=== PATIENT | male | born 1965 | race Caucasian/White ===

== ENCOUNTER 2024-02-25 13:43 | Inpatient (IN) | payer BC, SELFPAY ==
[2024-02-25] VITALS (13 sets, daily range): BP systolic 86–124; BP diastolic 53–85; PULSE 60–74; RESP 14–18; TEMP 36.1–36.7; O2SAT 96–100; BMI 29.4; BMI 29.2
--- NOTE | 2024-02-25 14:00 | EDS_ITS ---
HPI History of Present Illness Chief Complaint: Dizziness Informant: patient Onset/Context/Timing Onset: Weeks (1) Context: Gradual Onset Timing: Intermittent Quality: Fuzzy, off balance, foggy Location: Head Worsened by: Nothing Relieved by: Nothing Narrative Narrative: Patient presents with dizziness that has been intermittent over the last week. Patient states he feels fuzzy, foggy, and off balance. Patient states nothing makes it better nothing makes it worse. Patient denies any tinnitus or hearing changes. Patient does admit to some blurry vision and some rhinorrhea. Patient denies any recent fevers or chills. Patient denies any headaches or neck pain. Patient denies any chest pain or shortness of breath. [facility] Medical History Anxiety Hypertension Home Medications ?Medication ?Instructions ?Recorded ?Last Taken ?Type artificial tears(hypromellose) 0.5 1 drp EACH EYE DAILY PRN dry eyes 02/25/24 Unknown History % eye drops atenolol 50 mg tablet 50 mg PO DAILY BLOOD PRESSURE 02/25/24 02/25/24 History citalopram 20 mg tablet 20 mg PO DAILY PRN anxiety 02/25/24 02/25/24 History lisinopril 30 mg tablet 30 mg PO DAILY BLOOD PRESSURE 02/25/24 02/25/24 History Allergy/AdvReac Type Severity Reaction Status Date / Time No Known Allergies Allergy Verified 02/25/24 13:45 Family History Other Cancer Heart disease Surgical History Hx of foot surgery Social History Smoking Status: Never smoker alcohol intake: current alcohol intake frequency: a few times a month substance use type: marijuana ROS ROS ED Constitutional Constitutional ED: Denies chills or fever(s) Eyes Eyes: Reports blurry vision; Denies change in vision ENT ENT ED: Reports rhinorrhea; Denies sore throat Cardiovascular Cardiovascular: Denies chest pain or palpitations Respiratory/Chest Respiratory/Chest: Denies cough or dyspnea Gastrointestinal Gastrointestinal: Denies nausea or vomiting Genitourinary Genitourinary ED: Denies dysuria or hematuria Musculoskeletal Musculoskeletal: Reports back pain; Denies neck pain Integumentary Denies abscess or rash Neurologic Neurologic: Denies headache(s) or weakness Allergic/Immunologic Allergic/Immunologic ED: Denies mouth swelling or urticaria EXAM Physical Exam Const Vital Signs: 02/25/24 13:44 02/25/24 14:55 02/25/24 15:43 Temperature 96.9 F L Temperature Source Temporal Pulse Rate 71 60 Pulse Rate [Lying] 62 Pulse Rate [Sitting (for 1 minute prior to obtaining)] 72 Pulse Rate [Standing (for 1 minute prior to obtaining)] 74 Respiratory Rate 18 16 Blood Pressure 113/62 119/53 L Blood Pressure [Lying] 99/60 Blood Pressure [Sitting (for 1 minute prior to obtaining)] 86/74 L Blood Pressure [Standing (for 1 minute prior to obtaining)] 111/68 Blood Pressure Mean 79 75 Blood Pressure Mean [Lying] 73 Blood Pressure Mean [Sitting (for 1 minute prior to obtaining)] 78 Blood Pressure Mean [Standing (for 1 minute prior to obtaining)] 82 Pulse Ox 99 96 Oxygen Delivery Method Room Air Positive well nourished and well developed General Appearance ED: well developed HEENT Reports moist mucous membranes Eyes PERRL and EOMs intact bilaterally Eyes Narrative: There was some nystagmus noted with right lateral gaze. There is mild nystagmus with left lateral gaze. This does not reproduce the patient's symptoms. Neck supple and no JVD Resp normal respiratory effort and clear to auscultation bilaterally Cardio regular rate and regular rhythm GI non-tender and non-distended Palpation: soft Extremity normal to inspection General Extremety ED: Negative for edema or tenderness General Extremity: Negative for edema Neuro oriented x3, CN's II-XII intact bilaterally and no sensory deficits noted Sensorium / Orientation: alert Motor Exam: strength 5/5 throughout Psych mental status grossly normal MDM MDM MDM Narrative Medical decision making narrative: Differential diagnosis includes stroke, vertigo, labyrinthitis, electrolyte abnormality, dehydration, anemia, diabetes, and anxiety. CBC will be obtained to assess for leukocytosis and anemia. Basic metabolic profile will be obtained to assess for electrolyte abnormality, hyperglycemia, hypoglycemia, and renal function. PT with INR and PTT will be obtained to assess for coagulopathy. High-sensitivity troponin will be obtained to assess for cardiac ischemia. EKG will be obtained to assess for cardiac dysrhythmia and cardiac ischemia. CT scan of the brain will be obtained to assess for stroke and intracranial bleeding. Lab Data Attestation: I reviewed the patient's lab results. Lab results narrative: CBC was reviewed. There is a mild anemia with a hemoglobin of 12.3 and hematocrit 33.5. The remainder is within normal limits. PT was INR and PTT were reviewed. Pro time was 14.7 and INR is 1.2. PTT was normal at 32. Basic metabolic profile was reviewed. Sodium was low at 113 and chloride was low at 75. Potassium was slightly low at 3.4. Remainder is within normal limits. High-sensitivity troponin was reviewed and was normal at 6. Labs: Laboratory Results - last 24 hr 02/25/24 14:20 WBC 8.5 RBC 3.99 L Hgb 12.3 L Hct 33.5 L MCV 84.0 MCH 30.8 MCHC 36.7 H RDW Std Deviation 42.0 RDW Coeff of Inocente 13.5 Plt Count 175 MPV 8.6 Immature Gran % (Auto) 0.600 Neut % (Auto) 64.5 Lymph % (Auto) 20.4 [place] % (Auto) 13.3 H Eos % (Auto) 0.6 Baso % (Auto) 0.6 Absolute Neuts (auto) 5.5 Absolute Lymphs (auto) 1.73 Nucleated RBC % 0 PT 14.7 INR 1.2 APTT 32.0 Sodium 113 L* Potassium 3.4 L Chloride 75 L Carbon Dioxide 26.0 Anion Gap 12 BUN 16 Creatinine 1.23 Estim Creat Clear Calc 75.36 Est GFR (MDRD) Af Amer 77 Est GFR (MDRD) Non-Af 64 BUN/Creatinine Ratio 13.0 Glucose 98 Serum Osmolality 248 L Uric Acid 4.0 Calcium 8.7 Troponin I High Sens 6 Radiography Chest X-Ray - ED: 1 View, Read by ED Physician, Read by Radiologist and No Acute Disease Diagnostic Testing: Clinical Impression(s) from Imaging Studies Brain CT 02/25/24 14:11 IMPRESSION: Chronic involutional changes of the brain. Electronically Signed: González Finnegan MD at 15:23 EDT , Chest X-Ray 02/25/24 14:40 IMPRESSION: No acute cardiopulmonary disease. Electronically Signed: González Finnegan MD at 15:50 EDT , CT scan of the brain was obtained. There is no acute intracranial abnormality. This was interpreted by the radiologist and was also independently reviewed by myself. Portable 1 view chest x-ray was obtained. On my independent interpretation, lung emery are clear. There is normal cardiac silhouette. Bony thorax is normal. There is no acute process noted. Radiologist also interpreted the x- ray and agrees. EKG Initial EKG: Attestation: I personally reviewed and interpreted this EKG as follows: Interpretation: Sinus Rhythm (63) and No Acute Injury Pattern Comments: EKG was obtained. On my independent interpretation, it showed a normal sinus rhythm with a rate of 63. [place] interval, QRS interval, and QTc intervals were all normal. [place] was normal. There are no acute ST or T wave changes. Prior EKG tracings: not available for review Prior: No Prior Management Discussion w/another healthcare provider: Hospitalist Treatment and Re-Evaluation :: Orthostatic vital signs were obtained and were negative. Patient was advised of his findings. Patient was started on saline at 250 cc/h. Patient was advised of the need for hospitalization. Patient is agreeable with this. Case was discussed with the hospitalist. He will admit the patient to his service. He recommended starting the patient on 3% saline. This was ordered. Patient understood and was agreeable with the plan. All questions were answered. Critical Care Time Critical Care Time: Yes Critical care time (excluding procedures): 30-74 minutes (36 minutes), Including time spent:, Discussing w/Patient &/or Family/Company Manager, Discussing w/Consultants, Arranging Admission or Transfer and Performing Direct Patient Care at Bedside Discharge Plan Dx/Rx/DC Orders Clinical Impression: Hyponatremia, Dizziness, Hypertension Disposition Disposition: [facility] Discharge Date/Time: 02/25/24 16:28
--- NOTE | 2024-02-25 14:11 | CT_ITS ---
STUDY: CT BRAIN WITHOUT CONTRAST REASON FOR EXAM: Male, 58 years old. Dizziness RADIATION DOSAGE (If Supplied By Facility): CTDIvol = ( 44.99 ) mGy, DLP = ( 812.98 ) mGycm TECHNIQUE: Transaxial CT imaging of the brain was performed without administration of intravenous contrast material. Individualized dose optimization techniques were used for this CT. COMPARISON: No relevant priors. FINDINGS: Normal soft tissue structures. Normal calvarium. There is mild cerebral atrophy with widening of the extra-axial spaces and ventricular dilatation. Normal white matter tracts of the cerebral hemispheres. There are left temporal calcifications. Normal basal ganglia and thalami. Normal brainstem. Normal cerebellum. There is no intracranial hemorrhage. There are no findings of an acute ischemic infarction. Normal visualized paranasal sinuses. CT/Brain/Head without Contrast IMPRESSION: Chronic involutional changes of the brain. Electronically Signed: Gonzálze Finnegan MD at 15:23 EDT ,
--- NOTE | 2024-02-25 14:11 | EKG12_ITS ---
Test Reason : Blood Pressure : / mmHG Vent. Rate : 063 BPM Atrial Rate : 063 BPM P-R Int : 194 ms QRS Dur : 112 ms QT Int : 446 ms P-R-T Axes : 069 038 057 degrees QTc Int : 456 ms Normal sinus rhythm Incomplete left bundle branch block Borderline ECG Confirmed by Dillon Villarreal ([id number]), editor in chief PATRICIA ALVARADO ([id number]) on 02/28/2024 8:13:55 AM Referred By: Confirmed By:Dillon Villarreal
[2024-02-25 14:31] LABS: Absolute Lymphocyte Count 1.73 X10^3/uL (0.83-4.51); Absolute Neutrophil Count 5.5 X10^3/uL (2.0-7.7); Basophil# 0.05 X10^3/uL; Basophil% 0.6 % (0-1); Eosinophil# 0.05 X10^3/uL; Eosinophils% 0.6 % (0-5); Hematocrit 33.5 % (40-54); Hemoglobin 12.3 g/dL (13.0-16.5); Lymphocyte # 1.73 X10^3/ul (0.83-4.51); Lymphocyte % 20.4 % (19-41); Mean Corp Hgb Conc 36.7 g/dL (32-36); Mean Corpuscular Hgb 30.8 pg (27.0-32.0); Mean Platelet Vol. 8.6 fl (6.2-12.0); Monocyte# 1.13 X10^3/uL; Monocyte% 13.3 % (0-10); NRBC Flagged by Analyzer 0 % (0-5); Neutrophil # 5.49 X10^3/uL (2.7-7.7); Neutrophil % 64.5 % (47-70); Platelet Count 175 K/mm3 (150-450); RBC Distribution Width CV 13.5 % (11.6-14.6); Red Blood Count 3.99 M/mm3 (4.6-6.2); White Blood Count 8.5 K/mm3 (4.4-11.0)
--- NOTE | 2024-02-25 14:40 | RAD_ITS ---
STUDY: X-RAY CHEST REASON FOR EXAM: Male, 58 years old. Dizziness TECHNIQUE: Single AP portable view of the chest. COMPARISON: None. FINDINGS: The lungs are clear and expanded. There is no demonstrated pleural abnormality. Normal size heart. Normal mediastinum and [place]. Normal visualized pulmonary arteries. There is atherosclerotic calcification of the aortic arch. Normal visualized thoracic spine. Normal visualized ribs, clavicles, and shoulders. There is no demonstrated abnormality of the visualized soft tissue structures of the upper abdomen. RAD/Chest 1 View (Portable) IMPRESSION: No acute cardiopulmonary disease. Electronically Signed: González Finnegan MD at 15:50 EDT ,
[2024-02-25 14:41] LABS: International Normalized Ratio 1.2; Prothrombin Time (Protime)PT. 14.7 SECONDS (11.7-14.9)
[2024-02-25 14:54] LABS: Anion Gap 12 (5-15); BUN 16 mg/dL (7-18); Calcium,Total 8.7 mg/dL (8.5-10.1); Chloride 75 mmol/L (98-107); Creatinine, Serum 1.23 mg/dL (0.70-1.30); EST Glomerular Filtration Rate 64 mL/min (>60); Est Glom Filt Rate - Afr Amer 77 mL/min (>60); Estimated Creatinine Clearance 75.36 ml/min; Glucose 98 mg/dL (74-106); Potassium 3.4 mmol/L (3.5-5.1); Sodium Level 113 mmol/L (136-145); Troponin-I HS 6 pg/mL (3.0-78.0)
[2024-02-25] MEDS: 0.9% Normal Saline (1000mL) 1,000 ML 250 ML IV (15:06)
--- NOTE | 2024-02-25 15:45 | PCM.HP.STD ---
HPI - General General Date of Admission: 02/25/24 Date of Service: 02/25/24 Chief Complaint: Lightheadedness HPI Narrative SUMMER ROMEO, is a 58 M with a significant history of hypertension and anxiety disorder who presented to emergency department with lightheadedness that has been going on for about a week. Also patient feels off balance and disoriented. At the emergency department was found to have very low sodium. He reports that he has been drinking a lot of water; and electrolytes propel. He reports drinking 1-2 beers per day. At times he says he drinks about 6-7 beers per day. Last time he drank at least 3 beers was the day before presentation. He reported that he is able to stay off alcohol. He reported that after right foot surgery he was taking narcotics and during the time of the narcotics he was able to stay off alcohol without any problem. [facility] Medical History Anxiety Hypertension Home Medications ?Medication ?Instructions ?Recorded ?Last Taken ?Type artificial tears(hypromellose) 0.5 1 drp EACH EYE DAILY PRN dry eyes 02/25/24 Unknown History % eye drops atenolol 50 mg tablet 50 mg PO DAILY BLOOD PRESSURE 02/25/24 02/25/24 History citalopram 20 mg tablet 20 mg PO DAILY PRN anxiety 02/25/24 02/25/24 History lisinopril 30 mg tablet 30 mg PO DAILY BLOOD PRESSURE 02/25/24 02/25/24 History Allergy/AdvReac Type Severity Reaction Status Date / Time No Known Allergies Allergy Verified 02/25/24 13:45 Family History Other Cancer Heart disease Surgical History Hx of foot surgery Social History Smoking Status: Never smoker alcohol intake: current alcohol intake frequency: a few times a month substance use type: marijuana ROS ROS Narrative Pertinent positives and pertinent negatives as noted in HPI. All other systems were reviewed and are negative Vital Signs Vital Signs Vital Signs: 02/25/24 13:44 02/25/24 14:55 Temperature 96.9 F L Temperature Source Temporal Pulse Rate 71 Pulse Rate [Lying] 62 Pulse Rate [Sitting (for 1 minute prior to obtaining)] 72 Pulse Rate [Standing (for 1 minute prior to obtaining)] 74 Respiratory Rate 18 Blood Pressure 113/62 Blood Pressure [Lying] 99/60 Blood Pressure [Sitting (for 1 minute prior to obtaining)] 86/74 L Blood Pressure [Standing (for 1 minute prior to obtaining)] 111/68 Blood Pressure Mean 79 Blood Pressure Mean [Lying] 73 Blood Pressure Mean [Sitting (for 1 minute prior to obtaining)] 78 Blood Pressure Mean [Standing (for 1 minute prior to obtaining)] 82 Pulse Ox 99 Oxygen Delivery Method Room Air Weight Weight: 95.6 kg Body Mass Index (BMI) 29.4 Physical Exam Narrative Physical exam: General: Well-nourished, well-developed. Head: Normocephalic, atraumatic, no tenderness Eyes: Vision is grossly intact. EOMI ENT, no trauma, moist mucous membranes, no rhinorrhea Neck: Nontender, No thyromegaly. CVS: Regular rate and rhythm. S1-S2 present. No murmur, gallop or rub. Respiratory : clear to auscultation bilaterally, chest wall nontender Abdomen: Soft, nontender, nondistended, normal bowel sounds, no masses : Deferred Back: Nontender, no CVA tenderness, no midline spinal tenderness, deformities, step-offs Extremities: Deformed right foot; mild edema of right foot.. Hammertoes on multiple toes of left foot. Skin: Normal color, no trauma, abrasions Neuro: Alert, oriented, cranial nerves II through XII grossly intact. Psychiatry: Normal mood. Normal affect. Not depressed. Not anxious. Results Lab / Micro Data 02/25/24 14:20 02/25/24 20:00 Labs: Laboratory Results - last 24 hr 02/25/24 14:20: WBC 8.5, RBC 3.99 L, Hgb 12.3 L, Hct 33.5 L, MCV 84.0, MCH 30.8, MCHC 36.7 H, RDW Std Deviation 42.0, RDW Coeff of Inocente 13.5, Plt Count 175, MPV 8.6, Immature Gran % (Auto) 0.600, Neut % (Auto) 64.5, Lymph % (Auto) 20.4, [place] % (Auto) 13.3 H, Eos % (Auto) 0.6, Baso % (Auto) 0.6, Absolute Neuts (auto) 5.5, Absolute Lymphs (auto) 1.73, Nucleated RBC % 0, PT 14.7, INR 1.2, APTT 32.0, Sodium 113 L*, Potassium 3.4 L, Chloride 75 L, Carbon Dioxide 26.0, Anion Gap 12, BUN 16, Creatinine 1.23, Estim Creat Clear Calc 75.36, Est GFR (MDRD) Af Amer 77, Est GFR (MDRD) Non-Af 64, BUN/Creatinine Ratio 13.0, Glucose 98, Calcium 8.7, Troponin I High Sens 6 Imaging Radiology Impression Brain CT 02/25/24 14:11 IMPRESSION: Chronic involutional changes of the brain. Electronically Signed: González Finneagn MD at 15:23 EDT , Assessment & Plan Assessment/Plan (1) Dizziness: (2) Hyponatremia: (3) Anxiety: (4) Hypertension: QUALIFIERS: Hypertension type: primary hypertension Qualified Code(s): I10 - Essential (primary) hypertension PLAN: Plan SUMMER ROMEO, is a 58 M with a significant history of hypertension and anxiety disorder who presented to emergency department with lightheadedness that has been going on for about a week; and found to have a low sodium in the setting of alcoholism and on diuretics. Acute hyponatremia/dizziness CT brain was independently interpreted; results: No acute pathology. Agrees with radiology interpretation. Discussed with ED physician who will start patient on hypertonic saline. Will trend BMP. Check uric acid Check urine osmolarity Check urine sodium Check serum osmolality Reports recently being taken off HCTZ. Hold lisinopril. Takes citalopram as needed, hold for now. 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 Discussed case with grinding mill operator who recommended to continue current management. Prolonged QTc Check magnesium Avoid QT prolongation drugs. Avoid Zofran check magnesium Hypertension Blood pressure is stable Home blood pressure medications continued Trend blood pressure and adjust blood pressure medications. Alcoholism Plan CIWA protocol with as needed Ativan. Thiamine, folic acid and multivitamins ordered. DVT prophylaxis: SCDs ordered. Time spent in the patient's overall evaluation,decision-making process, review of diagnostic data, adjustment of management, discussion with other providers, nursing and ancillary staff involved in patient's care documentation, Advance care planning: Discussed with patient and family advanced directives as well as CODE STATUS. Explained various CODE STATUS: FULL CODE, DNR CCA, DNR CCA with no intubation, and DNR CC- and what each meant. Patient elected to be a full code with CPR and intubation if warranted. Order was placed. Surrogate decision maker is his Sister Marley Paul. Time spent on discussion 16 minutes. Minutes. Charges/Coding Visit Charges Inpatient E&M: 52246 Init Hosp L3 Procedures Hospitalists Procedures: [id number] Advncd Care Plan 30 Min
[2024-02-25] MEDS: Sodium Cl 3% 500 ML 34 ML IV (16:08)
[2024-02-25 18:07] LABS: Osmolality, Serum 248 mOsm/KG (275-295)
[2024-02-25] MEDS: Thiamine Hydrochloride 100 MG Tablet PO (19:57)
[2024-02-25] MEDS: Acetaminophen 325 MG Tablet 650 MG PO (19:57)
[2024-02-25] MEDS: MELATONIN 3 MG TABLET PO (19:58)
--- NOTE | 2024-02-25 20:02 | CON.PCM.CC_ITS ---
HPI Consult Data Date of Consult: 02/25/24 HPI Narrative HPI Narrative: SUMMER ROMEO, is a 58 M w/ EtOH use, HTN, h/o COVID-19 ~6 months ago, anxiety disorder who presented with lightheadedness for the past week. He reportedly feeling off balance, and would have to sit down on ground at times. Denies syncope, fall, head injury. Reports some increased blurred vision, no CONNORS, worsening numbness/tingling (has some chronic intermittent tingling in fingers). Reports poorer appetite since COVID, has lost weight. 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 Taking HCTZ, lisinopril, celexa until the day before admit when his PCP told him to stop the HCTZ. Denies any prior h/o hyponatremia. Drinks few beers several times a week, up to 6 beers daily on the wknd. Uses medical marijuana, denies any other illicits. Denies fevers, chills, nausea, vomiting, diarrhea, syncope, dysphagia, odynophagia, orthopnea, paroxysmal nocturnal dyspnea, shortness of breath, chest pain, reflux symptoms, belly pain, dysuria, hematuria, melena, hematochezia, seizures, paralysis. ROS: 12-point ROS negative except as per HPI [facility] Medical History Anxiety Hypertension Home Medications ?Medication ?Instructions ?Recorded ?Last Taken ?Type artificial tears(hypromellose) 0.5 1 drp EACH EYE DAILY PRN dry eyes 02/25/24 Unknown History % eye drops atenolol 50 mg tablet 50 mg PO DAILY BLOOD PRESSURE 02/25/24 02/25/24 History citalopram 20 mg tablet 20 mg PO DAILY PRN anxiety 02/25/24 02/25/24 History lisinopril 30 mg tablet 30 mg PO DAILY BLOOD PRESSURE 02/25/24 02/25/24 History Allergy/AdvReac Type Severity Reaction Status Date / Time No Known Allergies Allergy Verified 02/25/24 13:45 Family History Other Cancer Heart disease Surgical History Hx of foot surgery Social History Smoking Status: Never smoker alcohol intake: current alcohol intake frequency: a few times a month substance use type: marijuana Objective Data Objective Data Vital Signs: Vital Signs Last response 3 Temperature 36.6 C 02/25/24 16:39 Temperature Source Temporal 02/25/24 16:39 Pulse Rate 65 02/25/24 19:00 Respiratory Rate 17 02/25/24 19:00 Blood Pressure 99/67 02/25/24 19:00 Blood Pressure Mean 77 02/25/24 19:00 Blood Pressure Source Monitor 02/25/24 19:00 Blood Pressure Position Semi-Fowlers 02/25/24 19:00 Blood Pressure Location Left Arm 02/25/24 19:00 Pulse Ox 96 02/25/24 19:00 Oxygen Delivery Method Room Air 02/25/24 19:00 I&O: I&O Last 24 Hours 3 02/24/24 02/25/24 02/25/24 23:59 11:59 23:59 Intake Total 421.44 / 421.44 Balance 421.44 / 421.44 I&O: Total Stay 3 02/25/24 13:43 thru 02/25/24 19:57 Intake Total 421.44 Balance 421.44 Current Meds Ordered / Administered: Current meds ordered / Administered 3 Generic Name Dose Route Start Last Admin Trade Name Freq PRN Reason Stop Dose Admin Acetaminophen 650 mg 02/25/24 16:38 02/25/24 19:57 Acetaminophen 325 Mg Tablet PO 650 mg Q6H PRN PRN Administration Pain 1-10 Or Fever>100.7 Albuterol Sulfate 2.5 mg 02/25/24 16:38 Albuterol 2.5 Mg/3 Ml Vial.Neb. INHALATION Q2H PRN PRN SOB &/OR WHEEZING Atenolol 50 mg 02/26/24 10:00 Atenolol 50 Mg Tablet PO DAILY [facility] Protocol Enoxaparin Sodium 40 mg 02/26/24 10:00 Enoxaparin 40 Mg/0.4 Ml Syringe SC DAILY [facility] Folic Acid 1 mg 02/26/24 08:00 Folic Acid 1 Mg Tablet PO BREAKFAST [facility] Glycerin/Hypromellose/Polyethylene 1 drp 02/25/24 16:46 Glycerin/Hypromellose/[id number] 15 Ml Bottle EACH EYE DAILY PRN dry eyes Sodium Chloride 500 mls @ 40 mls/hr 02/25/24 16:38 02/25/24 19:57 Sodium Cl 3% IV 02/27/24 18:37 Not Given .[id number] DON Sodium Chloride 250 mls @ 15 mls/hr 02/25/24 16:49 IV .[id number] PRN Additional IVPB Infusion Sodium Chloride 250 mls @ 15 mls/hr 02/25/24 16:49 IV .[id number] PRN Saline Flush Lorazepam 2 mg 02/25/24 16:54 Lorazepam 2 Mg/Ml Syringe IV UD PRN CIWA score >/=15. Protocol Lorazepam 2 mg 02/25/24 16:54 Lorazepam 2 Mg/Ml Syringe IV Q2H PRN PRN CIWA score > 8 but <15 Protocol Lorazepam 2 mg 02/25/24 16:54 Lorazepam 1 Mg Tablet PO UD PRN CIWA score >/=15. Protocol Lorazepam 2 mg 02/25/24 16:54 Lorazepam 1 Mg Tablet PO Q2H PRN PRN CIWA score > 8 but <15 Protocol Melatonin 3 mg 02/25/24 16:38 02/25/24 19:58 Melatonin 3 Mg Tablet PO 3 mg QHS PRN PRN Administration INSOMNIA Multivitamins 1 tablet 02/26/24 08:00 Multivitamins,Therapeutic Tablet PO BREAKFAST [facility] Prochlorperazine Edisylate 5 mg 02/25/24 16:38 Prochlorperazine 10 Mg/2 Ml Vial IV Q4H PRN PRN Breakthrough Nausea/Vomiting Senna/Docusate Sodium 2 tablet 02/25/24 16:38 Senna/Docusate Sodium 1 Tablet PO BID PRN Constipation Sodium Chloride 10 - 40 ml 02/25/24 16:49 0.9% Saline Lock 10 Ml Syringe IV UD PRN SALINE FLUSH Thiamine HCl 100 mg 02/26/24 08:00 Thiamine Hydrochloride 100 Mg Tablet PO BREAKFAST [facility] Lab / Micro Data 02/25/24 14:20 02/25/24 20:00 Labs: Laboratory Results - last 24 hr 02/25/24 14:20: WBC 8.5, RBC 3.99 L, Hgb 12.3 L, Hct 33.5 L, MCV 84.0, MCH 30.8, MCHC 36.7 H, RDW Std Deviation 42.0, RDW Coeff of Inocente 13.5, Plt Count 175, MPV 8.6, Immature Gran % (Auto) 0.600, Neut % (Auto) 64.5, Lymph % (Auto) 20.4, [place] % (Auto) 13.3 H, Eos % (Auto) 0.6, Baso % (Auto) 0.6, Absolute Neuts (auto) 5.5, Absolute Lymphs (auto) 1.73, Nucleated RBC % 0, PT 14.7, INR 1.2, APTT 32.0, S odium 113 L*, Potassium 3.4 L, Chloride 75 L, Carbon Dioxide 26.0, Anion Gap 12, BUN 16, Creatinine 1.23, Estim Creat Clear Calc 75.36, Est GFR (MDRD) Af Amer 77, Est GFR (MDRD) Non-Af 64, BUN/Creatinine Ratio 13.0, Glucose 98, Serum Osmolality 248 L, Uric Acid 4.0, Calcium 8.7, Troponin I High Sens 6 Imaging Radiology Impression Brain CT 02/25/24 14:11 IMPRESSION: Chronic involutional changes of the brain. Electronically Signed: González Finnegan MD at 15:23 EDT , Chest X-Ray 02/25/24 14:40 IMPRESSION: No acute cardiopulmonary disease. Electronically Signed: González Finnegan MD at 15:50 EDT , Assessment and Plan . Assessment and plan: Physical Exam: Gen - NAD, well-developed HEENT - MMM. Sclera anicteric Resp - CTAB. Breathing nonlabored CV - RRR. No m/g/r Abd - Soft, NT, ND Ext - No c/c/e. MSK - No joint swelling/deformity Skin - No rashes? Neuro - Grossly nonfocal. Alert and oriented I have reviewed the pertinent vital sign, laboratory, and imaging data. ASSESSMENT: # Severe hyponatremia - may be multifactorial in setting of excessive water/beer intake, HCTZ # Hypokalemia # EtOH use # HTN # h/o COVID-19 ~6 months ago # Anxiety disorder PLAN: -s/p hypertonic saline initially. Would stop now given rapid correction in Na to 117. Start gentle D5W. Target no more than ~6-8mEq increase in 24 hrs -Q2h sodium for now -Check urine Na, osm, TSH, AM cortisol -Replete K, check mag -CIWA protocol, monitor for EtOH withdrawal sx -Thiamine/folate/MVI -Cont holding HCTZ FEN/GI: NPO for now Proph DVT/GI: Lovenox Critical Care Time: 60 mins The entirety of this encounter was completed via telemedicine
[2024-02-25 20:33] LABS: Anion Gap 9 (5-15); BUN 17 mg/dL (7-18); BUN/Creat Ratio 14.5 RATIO (10-20); Calcium,Total 8.6 mg/dL (8.5-10.1); Chloride 77 mmol/L (98-107); Creatinine, Serum 1.17 mg/dL (0.70-1.30); EST Glomerular Filtration Rate 68 mL/min (>60); Est Glom Filt Rate - Afr Amer 82 mL/min (>60); Estimated Creatinine Clearance 78.99 ml/min; Glucose 91 mg/dL (74-106); Potassium 2.8 mmol/L (3.5-5.1); Sodium Level 117 mmol/L (136-145)
[2024-02-25 20:56] LABS: Osmolality, Urine 121 mOsm/KG
[2024-02-25 21:01] LABS: Urine Sodium 11 mmol/L (Not Establ.)
[2024-02-25] MEDS: Potassium Chloride Oral Tablet 20 MEQ 40 MEQ PO (21:23)
[2024-02-25] MEDS: Potassium Chloride 10mEq/100mL 10 MEQ/100 ML IV.SOLN. 100 MEQ IV BOLUS ×3 (21:24→23:29)
[2024-02-25] MEDS: Dextrose 5%-Water (1000mL Bag) 1,000 ML 75 ML IV (21:24)
[2024-02-25] MEDS: 0.9% Saline Lock 10 ML Syringe IV (22:25)
[2024-02-25 23:42] LABS: Sodium Level 117 mmol/L (136-145); Thyroid Stim Hormone (TSH) 7.29 uIU/mL (0.358-3.74)
[2024-02-26] VITALS (25 sets, daily range): BP systolic 91–129; BP diastolic 55–100; PULSE 52–70; RESP 11–20; TEMP 35.9–36.9; O2SAT 94–100; BMI 29.5
[2024-02-26] MEDS: Potassium Chloride 10mEq/100mL 10 MEQ/100 ML IV.SOLN. 100 MEQ IV BOLUS (00:32)
[2024-02-26 00:56] LABS: Anion Gap 8 (5-15); BUN 18 mg/dL (7-18); BUN/Creat Ratio 16.8 RATIO (10-20); Calcium,Total 8.4 mg/dL (8.5-10.1); Chloride 79 mmol/L (98-107); Creatinine, Serum 1.07 mg/dL (0.70-1.30); EST Glomerular Filtration Rate 75 mL/min (>60); Est Glom Filt Rate - Afr Amer 91 mL/min (>60); Estimated Creatinine Clearance 86.38 ml/min; Glucose 86 mg/dL (74-106); Potassium 3.7 mmol/L (3.5-5.1); Sodium Level 117 mmol/L (136-145)
[2024-02-26] MEDS: Acetaminophen 325 MG Tablet 650 MG PO ×2 (03:43→18:23)
[2024-02-26 03:56] LABS: Absolute Lymphocyte Count 1.78 X10^3/uL (0.83-4.51); Absolute Neutrophil Count 4.3 X10^3/uL (2.0-7.7); Basophil# 0.06 X10^3/uL; Basophil% 0.8 % (0-1); Eosinophils% 1.4 % (0-5); Hematocrit 32.7 % (40-54); Hemoglobin 11.6 g/dL (13.0-16.5); Lymphocyte # 1.78 X10^3/ul (0.83-4.51); Mean Corp Hgb Conc 35.5 g/dL (32-36); Mean Corpuscular Hgb 30.9 pg (27.0-32.0); Mean Platelet Vol. 8.6 fl (6.2-12.0); Monocyte# 0.88 X10^3/uL; Monocyte% 12.3 % (0-10); NRBC Flagged by Analyzer 0 % (0-5); Neutrophil # 4.28 X10^3/uL (2.7-7.7); Neutrophil % 60.1 % (47-70); Platelet Count 154 K/mm3 (150-450); RBC Distribution Width CV 13.9 % (11.6-14.6); RBC Distribution Width SD 43.8 fl (35.1-43.9); Red Blood Count 3.76 M/mm3 (4.6-6.2); White Blood Count 7.1 K/mm3 (4.4-11.0)
[2024-02-26 04:30] LABS: Anion Gap 10 (5-15); BUN 17 mg/dL (7-18); Calcium,Total 8.4 mg/dL (8.5-10.1); Chloride 81 mmol/L (98-107); Creatinine, Serum 1.06 mg/dL (0.70-1.30); EST Glomerular Filtration Rate 76 mL/min (>60); Est Glom Filt Rate - Afr Amer 92 mL/min (>60); Estimated Creatinine Clearance 87.19 ml/min; Glucose 91 mg/dL (74-106); Phosphorus 2.4 mg/dL (2.5-4.9); Potassium 3.7 mmol/L (3.5-5.1); Sodium Level 118 mmol/L (136-145); Thyroid Stim Hormone (TSH) 5.47 uIU/mL (0.358-3.74)
--- NOTE | 2024-02-26 07:27 | PN.HOSP_ITS ---
Reason for Visit Reason for Visit: Diagnoses Hypo-osmolality and hyponatremia (02/25/24) Anxiety disorder, unspecified (02/25/24) Essential (primary) hypertension (02/25/24) Dizziness and giddiness (02/25/24) Objective Data Objective Data Vital Signs: Vital Signs Temp Pulse Resp BP Pulse Ox O2 Del Method 98.3 F 52 L 14 114/100 H 94 Room Air 02/26/24 04:00 02/26/24 07:00 02/26/24 07:00 02/26/24 07:00 02/26/24 07:05 02/26/24 07:05 Oxygen Delivery Method Room Air Weight: 211 lb 6.773 oz Body Mass Index (BMI) 29.5 Intake & Output: Intake and Output for Last 24 Hours 02/24/24 02/25/24 02/26/24 23:59 23:59 23:59 Intake Total 668.77 / 668.77 500 / 500 Output Total 500 / 500 1700 / 1700 Balance 168.77 / 168.77 -1200 / -1200 Lab / Micro Data 02/26/24 03:45 02/26/24 03:45 Labs: Laboratory Results - last 24 hr 02/25/24 14:20: WBC 8.5, RBC 3.99 L, Hgb 12.3 L, Hct 33.5 L, MCV 84.0, MCH 30.8, MCHC 36.7 H, RDW Std Deviation 42.0, RDW Coeff of Inocente 13.5, Plt Count 175, MPV 8.6, Immature Gran % (Auto) 0.600, Neut % (Auto) 64.5, Lymph % (Auto) 20.4, [place] % (Auto) 13.3 H, Eos % (Auto) 0.6, Baso % (Auto) 0.6, Absolute Neuts (auto) 5.5, Absolute Lymphs (auto) 1.73, Nucleated RBC % 0, PT 14.7, INR 1.2, APTT 32.0, S odium 113 L*, Potassium 3.4 L, Chloride 75 L, Carbon Dioxide 26.0, Anion Gap 12, BUN 16, Creatinine 1.23, Estim Creat Clear Calc 75.36, Est GFR (MDRD) Af Amer 77, Est GFR (MDRD) Non-Af 64, BUN/Creatinine Ratio 13.0, Glucose 98, Serum Osmolality 248 L, Uric Acid 4.0, Calcium 8.7, Troponin I High Sens 6 02/25/24 20:00: Sodium 117 L*, Potassium 2.8 L, Chloride 77 L, Carbon Dioxide 31.0, Anion Gap 9, BUN 17, Creatinine 1.17, Estim Creat Clear Calc 78.99, Est GFR (MDRD) Af Amer 82, Est GFR (MDRD) Non-Af 68, BUN/Creatinine Ratio 14.5, Glucose 91, Calcium 8.6 02/25/24 20:25: Urine Osmolality 121, Ur Random Sodium 11 02/25/24 22:20: Sodium 117 L*, TSH 7.29 H 02/26/24 00:30: Sodium 117 L*, Potassium 3.7, Chloride 79 L, Carbon Dioxide 30.0, Anion Gap 8, BUN 18, Creatinine 1.07, Estim Creat Clear Calc 86.38, Est GFR (MDRD) Af Amer 91, Est GFR (MDRD) Non-Af 75, BUN/Creatinine Ratio 16.8, Glucose 86, Calcium 8.4 L 02/26/24 03:45: WBC 7.1, RBC 3.76 L, Hgb 11.6 L, Hct 32.7 L, MCV 87.0, MCH 30.9, MCHC 35.5, RDW Std Deviation 43.8, RDW Coeff of Inocente 13.9, Plt Count 154, MPV 8.6, Immature Gran % (Auto) 0.400, Neut % (Auto) 60.1, Lymph % (Auto) 25.0, [place] % (Auto) 12.3 H, Eos % (Auto) 1.4, Baso % (Auto) 0.8, Absolute Neuts (auto) 4.3, Absolute Lymphs (auto) 1.78, Nucleated RBC % 0, Sodium 118 L*, Potassium 3.7, C hloride 81 L, Carbon Dioxide 27.0, Anion Gap 10, BUN 17, Creatinine 1.06, Estim Creat Clear Calc 87.19, Est GFR (MDRD) Af Amer 92, Est GFR (MDRD) Non-Af 76, BUN/Creatinine Ratio 16.0, Glucose 91, Calcium 8.4 L, Phosphorus 2.4 L, Magnesium 2.0, TSH 5.47 H, Cortisol 21.90 Radiography Diagnostic Testing: Radiology Impression Brain CT 02/25/24 14:11 IMPRESSION: Chronic involutional changes of the brain. Electronically Signed: González Finnegan MD at 15:23 EDT , Chest X-Ray 02/25/24 14:40 IMPRESSION: No acute cardiopulmonary disease. Electronically Signed: González Finnegan MD at 15:50 EDT , Physical Exam Narrative Seen and examined. Patient drinks alcohol. He states he usually drinks 2-3 tall bottles of beer per day. Does not drink hard liquor including whiskey, gin or vodka. Denies a smoking. Patient having dizziness since past 3 days foggy and off balance. Patient also had some blurry vision but denies headache or neck pain. Physical exam General: Alert, Oriented x3, Cooperative. BMI 29.5 kg/m?. HEENT: Atraumatic, PERRLA, EOMI, Normocephalic Oral: No Gingival or Mucosal Lesions/ Ulcerations Neck: Supple, No JVD, Negative Carotid Bruits Chest wall/Lungs: Air entry diminished in bilateral lung bases. No crepitation/rhonchi Cardiovascular: Regular rate, Regular Rhythm, Normal S1, Normal S2, No M/G/R Abdomen: Bowel Sounds Present, Soft, Non Tender, Non-Distended : No dysuria. No renal angle tenderness. No suprapubic tenderness. Extremities: No edema, Capillary Refill Less than 3 Seconds Skin: No rashes, No breakdown Musculoskeletal: No Tenderness to Palpation of Joints or Extremities Neurological: Cranial nerves II-XII grossly intact, DTR 2+/4. No acute focal neurological deficit. Psych/Mental Status: Normal Affect, Appropriate. Assessment & Plan Assessment/Plan (1) Dizziness: (2) Hyponatremia: (3) Anxiety: (4) Hypertension: QUALIFIERS: Hypertension type: primary hypertension Qualified Code(s): I10 - Essential (primary) hypertension PLAN: Plan SUMMER LUCEROS, is a 58 M came to emergency department with lightheadedness, feels off balance and disoriented that has been going on for about a week; and found to have a low sodium in the setting of alcoholism and on diuretics. Acute hyponatremia/dizziness probably from alcohol use or hyponatremia. Sodium improved from 113-1 18. Increase to 5 mEq in 18 hours. Currently not on IV fluid normal saline. Plaster Mechanic is consulted. CT brain was independently interpreted; does not show acute pathology. Patient had hypertonic saline. Reports recently being taken off HCTZ. Hold lisinopril. Takes citalopram as needed, hold for now. Citalopram/other SSRI also causes hyponatremia Customer Care Consultant consulted. Discussed case with convention services director who recommended to continue current management. Urine osmolarity to 121 and urine sodium low level . Serum osmolality 248. Uric acid 4.0. TSH elevated 7.29. Serum cortisol level normal. Overall seems probably due to low solute intake and beer potomania. Prolonged QTc Serum magnesium 2.0. Phosphorus 2.4. Avoid QT prolongation drugs. Avoid Zofran check magnesium Hypertension Blood pressure is stable Home blood pressure medications continued Trend blood pressure and adjust blood pressure medications. Alcoholism Plan CIWA protocol with as needed Ativan. Thiamine, folic acid and multivitamins ordered. DVT prophylaxis: SCDs ordered. Total time of the visit including total time spent in counseling or coordination of care, (more than 50% of the total time, spent in obtaining medical information from nurses and other ancillary care providers,explaining to the patient about labs, imaging, diagnosis and management of active complex medical conditions), discussion with convention services director and nephrology, review of labs and imaging is 40 minutes. Advance care planning: Discussed with patient and family advanced directives as well as CODE STATUS. Explained various CODE STATUS: FULL CODE, DNR CCA, DNR CCA with no intubation, and DNR CC- and what each meant. Patient elected to be a full code with CPR and intubation if warranted. Order was placed. Surrogate decision maker is his Sister Marley Paul. Laboratory Results 02/25/24 14:20: WBC 8.5, RBC 3.99 L, Hgb 12.3 L, Hct 33.5 L, MCV 84.0, MCH 30.8, MCHC 36.7 H, RDW Std Deviation 42.0, RDW Coeff of Inocente 13.5, Plt Count 175, MPV 8.6, Immature Gran % (Auto) 0.600, Neut % (Auto) 64.5, Lymph % (Auto) 20.4, [place] % (Auto) 13.3 H, Eos % (Auto) 0.6, Baso % (Auto) 0.6, Absolute Neuts (auto) 5.5, Absolute Lymphs (auto) 1.73, Nucleated RBC % 0, PT 14.7, INR 1.2, APTT 32.0 Sodium 113 L*, Potassium 3.4 L, Chloride 75 L, Carbon Dioxide 26.0, Anion Gap 12, BUN 16, Creatinine 1.23, Estim Creat Clear Calc 75.36, Est GFR (MDRD) Af Amer 77, Est GFR (MDRD) Non-Af 64, BUN/Creatinine Ratio 13.0, Glucose 98, Serum Osmolality 248 L, Uric Acid 4.0, Calcium 8.7, Troponin I High Sens 6 02/25/24 20:00: Sodium 117 L*, Potassium 2.8 L, Chloride 77 L, Carbon Dioxide 31.0, Anion Gap 9, BUN 17, Creatinine 1.17, Estim Creat Clear Calc 78.99, Est GFR (MDRD) Af Amer 82, Est GFR (MDRD) Non-Af 68, BUN/Creatinine Ratio 14.5, Glucose 91, Calcium 8.6 02/25/24 20:25: Urine Osmolality 121, Ur Random Sodium 11 02/25/24 22:20: Sodium 117 L*, TSH 7.29 H 02/26/24 00:30: Sodium 117 L*, Potassium 3.7, Chloride 79 L, Carbon Dioxide 30.0, Anion Gap 8, BUN 18, Creatinine 1.07, Estim Creat Clear Calc 86.38, Est GFR (MDRD) Af Amer 91, Est GFR (MDRD) Non-Af 75, BUN/Creatinine Ratio 16.8, Glucose 86, Calcium 8.4 L 02/26/24 03:45: WBC 7.1, RBC 3.76 L, Hgb 11.6 L, Hct 32.7 L, MCV 87.0, MCH 30.9, MCHC 35.5, RDW Std Deviation 43.8, RDW Coeff of Inocente 13.9, Plt Count 154, MPV 8.6, Immature Gran % (Auto) 0.400, Neut % (Auto) 60.1, Lymph % (Auto) 25.0, [place] % (Auto) 12.3 H, Eos % (Auto) 1.4, Baso % (Auto) 0.8, Absolute Neuts (auto) 4.3, Absolute Lymphs (auto) 1.78, Nucleated RBC % 0, Sodium 118 L*, Potassium 3.7, Chloride 81 L, Carbon Dioxide 27.0, Anion Gap 10, BUN 17, Creatinine 1.06, Estim Creat Clear Calc 87.19, Est GFR (MDRD) Af Amer 92, Est GFR (MDRD) Non-Af 76, BUN/Creatinine Ratio 16.0, Glucose 91, Calcium 8.4 L, Phosphorus 2.4 L, Magnesium 2.0, TSH 5.47 H, Cortisol 21.90 Charges/Coding Visit Charges Inpatient E&M: 07535 Subs Hosp L3
[2024-02-26] MEDS: Atenolol 50 MG Tablet PO (07:40)
[2024-02-26] MEDS: Multivitamins,Therapeutic Tablet 1 TABLET PO (07:43)
[2024-02-26] MEDS: Folic Acid 1 MG Tablet PO (07:43)
[2024-02-26] MEDS: Thiamine Hydrochloride 100 MG Tablet PO (07:43)
[2024-02-26] MEDS: Potassium Chloride Oral Tablet 20 MEQ 40 MEQ PO (09:42)
--- NOTE | 2024-02-26 09:46 | CASEMGMT ---
SARAH BEAL Assessment Face to Face with patient for initial transition planning/care coordination assessment. SARAH BEAL introduced self and role at [facility], pt voices understanding. Pt is A&Ox4 and is resting comfortably in bed and is calm. Care providers, pharmacy, and demographics verified. Admitting dx: Hyponatremia PCP: [facility] Specialists: Dr. Lazaro Solsi (Podiatry) Preferred Pharmacy: [facility] Insurance: [employer] Prescription Benefit:Yes LNOK: Marley Paul (Sister), Ron Mendieta (Brother) Living Arrangements: Pt lives alone in a ground level apartment with 3 steps to enter with a handrail ADLs/IADLs: Ind Transportation: Self DME: BSC, FWW, Electric W/C, Ice machine/ plunge for foot. Pt states that his siblings also have DME if the pt requires any further needs. HHC/SNF: Denies history or needs ETOH: Pt drinks around 6/7 12oz beers per day but states that he plans to slow down on this Pt?s goal: Home Plan: Home no needs. 6-click is 24. Pt states that his neighbors can provide support if needed. Pt denies the need for HHC or OP Tx. Pt states that he feels safe discharging home once he is medically ready. Pt denies further questions or concerns. Emely Rios RN, CM
[2024-02-26 12:00] LABS: Sodium Level 121 mmol/L (136-145)
--- NOTE | 2024-02-26 13:28 | PN.CC_ITS ---
Objective Data Objective Data Vital Signs: Vital Signs Last response 3 Temperature 36.6 C 02/26/24 12:00 Temperature Source Temporal 02/26/24 12:00 Pulse Rate 58 L 02/26/24 12:00 Pulse Strength Normal (2+) 02/26/24 10:00 Respiratory Rate 16 02/26/24 12:00 Respiratory Effort Normal, Non-Labored 02/26/24 04:00 Respiratory Depth Normal 02/26/24 04:00 Respiratory Pattern Normal 02/26/24 04:00 Blood Pressure 107/83 H 02/26/24 12:00 Blood Pressure Mean 91 02/26/24 12:00 Blood Pressure Source Monitor 02/26/24 12:00 Blood Pressure Position Semi-Fowlers 02/26/24 12:00 Blood Pressure Location Right Arm 02/26/24 12:00 Pulse Ox 98 02/26/24 12:00 Oxygen Delivery Method Room Air 02/26/24 12:00 I&O: I&O Last 24 Hours 3 02/25/24 02/26/24 02/26/24 23:59 11:59 23:59 Intake Total 668.77 / 668.77 1000 / 1300 300 / 1300 Output Total 500 / 500 2500 / 3700 1200 / 3700 Balance 168.77 / 168.77 -1500 / -2400 -900 / -2400 I&O: Total Stay 3 02/25/24 13:43 thru 02/26/24 12:00 Intake Total 1968.77 Output Total 4200 Balance -2231.23 Current Meds Ordered / Administered: Current meds ordered / Administered 3 Generic Name Dose Route Start Last Admin Trade Name Teddy PRN Reason Stop Dose Admin Acetaminophen 650 mg 02/25/24 16:38 02/26/24 03:43 Acetaminophen 325 Mg Tablet PO 650 mg Q6H PRN PRN Administration Pain 1-10 Or Fever>100.7 Albuterol Sulfate 2.5 mg 02/25/24 16:38 Albuterol 2.5 Mg/3 Ml Vial.Neb. INHALATION Q2H PRN PRN SOB &/OR WHEEZING Atenolol 50 mg 02/26/24 10:00 02/26/24 07:40 Atenolol 50 Mg Tablet PO 50 mg DAILY DON Administration Protocol Enoxaparin Sodium 40 mg 02/26/24 10:00 02/26/24 07:42 Enoxaparin 40 Mg/0.4 Ml Syringe SC Not Given DAILY DON Folic Acid 1 mg 02/26/24 08:00 02/26/24 07:43 Folic Acid 1 Mg Tablet PO 1 mg BREAKFAST DON Administration Glycerin/Hypromellose/Polyethylene 1 drp 02/25/24 16:46 Glycerin/Hypromellose/[id number] 15 Ml Bottle EACH EYE DAILY PRN dry eyes Sodium Chloride 250 mls @ 15 mls/hr 02/25/24 16:49 IV .[id number] PRN Additional IVPB Infusion Sodium Chloride 250 mls @ 15 mls/hr 02/25/24 16:49 IV .[id number] PRN Saline Flush Dextrose 1,000 mls @ 75 mls/hr 02/25/24 20:50 02/25/24 21:24 IV 75 mls/hr .[id number] DON Administration Lorazepam 2 mg 02/25/24 16:54 Lorazepam 2 Mg/Ml Syringe IV UD PRN CIWA score >/=15. Protocol Lorazepam 2 mg 02/25/24 16:54 Lorazepam 2 Mg/Ml Syringe IV Q2H PRN PRN CIWA score > 8 but <15 Protocol Lorazepam 2 mg 02/25/24 16:54 Lorazepam 1 Mg Tablet PO UD PRN CIWA score >/=15. Protocol Lorazepam 2 mg 02/25/24 16:54 Lorazepam 1 Mg Tablet PO Q2H PRN PRN CIWA score > 8 but <15 Protocol Melatonin 3 mg 02/25/24 16:38 02/25/24 19:58 Melatonin 3 Mg Tablet PO 3 mg QHS PRN PRN Administration INSOMNIA Multivitamins 1 tablet 02/26/24 08:00 02/26/24 07:43 Multivitamins,Therapeutic Tablet PO 1 tablet BREAKFAST DON Administration Potassium Chloride 40 meq 02/26/24 08:00 02/26/24 09:42 Potassium Chloride Oral Tablet 20 Meq PO 02/29/24 08:01 40 meq DAILYCM DON Administration Prochlorperazine Edisylate 5 mg 02/25/24 16:38 Prochlorperazine 10 Mg/2 Ml Vial IV Q4H PRN PRN Breakthrough Nausea/Vomiting Senna/Docusate Sodium 2 tablet 02/25/24 16:38 Senna/Docusate Sodium 1 Tablet PO BID PRN Constipation Sodium Chloride 10 - 40 ml 02/25/24 16:49 02/25/24 22:25 0.9% Saline Lock 10 Ml Syringe IV 40 ml UD PRN Administration SALINE FLUSH Thiamine HCl 100 mg 02/26/24 08:00 02/26/24 07:43 Thiamine Hydrochloride 100 Mg Tablet PO 100 mg BREAKFAST DON Administration Lab / Micro Data 02/26/24 03:45 02/26/24 11:30 Labs: Laboratory Results - last 24 hr 02/25/24 14:20: WBC 8.5, RBC 3.99 L, Hgb 12.3 L, Hct 33.5 L, MCV 84.0, MCH 30.8, MCHC 36.7 H, RDW Std Deviation 42.0, RDW Coeff of Inocente 13.5, Plt Count 175, MPV 8.6, Immature Gran % (Auto) 0.600, Neut % (Auto) 64.5, Lymph % (Auto) 20.4, [place] % (Auto) 13.3 H, Eos % (Auto) 0.6, Baso % (Auto) 0.6, Absolute Neuts (auto) 5.5, Absolute Lymphs (auto) 1.73, Nucleated RBC % 0, PT 14.7, INR 1.2, APTT 32.0, S odium 113 L*, Potassium 3.4 L, Chloride 75 L, Carbon Dioxide 26.0, Anion Gap 12, BUN 16, Creatinine 1.23, Estim Creat Clear Calc 75.36, Est GFR (MDRD) Af Amer 77, Est GFR (MDRD) Non-Af 64, BUN/Creatinine Ratio 13.0, Glucose 98, Serum Osmolality 248 L, Uric Acid 4.0, Calcium 8.7, Troponin I High Sens 6 02/25/24 20:00: Sodium 117 L*, Potassium 2.8 L, Chloride 77 L, Carbon Dioxide 31.0, Anion Gap 9, BUN 17, Creatinine 1.17, Estim Creat Clear Calc 78.99, Est GFR (MDRD) Af Amer 82, Est GFR (MDRD) Non-Af 68, BUN/Creatinine Ratio 14.5, Glucose 91, Calcium 8.6 02/25/24 20:25: Urine Osmolality 121, Ur Random Sodium 11 02/25/24 22:20: Sodium 117 L*, TSH 7.29 H 02/26/24 00:30: Sodium 117 L*, Potassium 3.7, Chloride 79 L, Carbon Dioxide 30.0, Anion Gap 8, BUN 18, Creatinine 1.07, Estim Creat Clear Calc 86.38, Est GFR (MDRD) Af Amer 91, Est GFR (MDRD) Non-Af 75, BUN/Creatinine Ratio 16.8, Glucose 86, Calcium 8.4 L 02/26/24 03:45: WBC 7.1, RBC 3.76 L, Hgb 11.6 L, Hct 32.7 L, MCV 87.0, MCH 30.9, MCHC 35.5, RDW Std Deviation 43.8, RDW Coeff of Inocente 13.9, Plt Count 154, MPV 8.6, Immature Gran % (Auto) 0.400, Neut % (Auto) 60.1, Lymph % (Auto) 25.0, [place] % (Auto) 12.3 H, Eos % (Auto) 1.4, Baso % (Auto) 0.8, Absolute Neuts (auto) 4.3, Absolute Lymphs (auto) 1.78, Nucleated RBC % 0, Sodium 118 L*, Potassium 3.7, C hloride 81 L, Carbon Dioxide 27.0, Anion Gap 10, BUN 17, Creatinine 1.06, Estim Creat Clear Calc 87.19, Est GFR (MDRD) Af Amer 92, Est GFR (MDRD) Non-Af 76, BUN/Creatinine Ratio 16.0, Glucose 91, Calcium 8.4 L, Phosphorus 2.4 L, Magnesium 2.0, TSH 5.47 H, Cortisol 21.90 02/26/24 11:30: Sodium 121 L Imaging Radiology Impression Brain CT 02/25/24 14:11 IMPRESSION: Chronic involutional changes of the brain. Electronically Signed: González Finnegan MD at 15:23 EDT , Chest X-Ray 02/25/24 14:40 IMPRESSION: No acute cardiopulmonary disease. Electronically Signed: González Finnegan MD at 15:50 EDT , Assessment and Plan . Assessment and plan: ASSESSMENT: # Severe hyponatremia - may be multifactorial in setting of excessive water/beer intake, HCTZ # Hypokalemia # EtOH use # HTN # h/o COVID-19 ~6 months ago # Anxiety disorder PLAN: -s/p hypertonic saline initially. Would stop now given rapid correction in Na to 121. Start gentle D5W. Target no more than ~6-8mEq increase in 24 hrs -Q2h sodium for next one at 3 pm -CIWA protocol, monitor for EtOH withdrawal sx -Thiamine/folate/MVI -Cont holding HCTZ FEN/GI: regular diet Proph DVT/GI: Lovenox Critical Care Time: 45 mins The entirety of this encounter was completed via telemedicine Critical Care Time: The entirety of this encounter was done via Telemedicine Physical Exam Const alert and oriented x3 General Appearance: cooperative and well developed HEENT normocephalic Eyes PERRL and EOMs intact bilaterally Neck full ROM and no lymphadenopathy Resp normal respiratory effort Effort and Inspection: able to speak in complete sentences GI normal to inspection, nondistended, normoactive bowel sounds Neuro oriented x3 and CN's II-XII intact bilaterally Subjective Subjective 58 M w/ EtOH use, HTN, h/o COVID-19 ~6 months ago, anxiety disorder who presented with lightheadedness for the past week. He reportedly feeling off balance, and would have to sit down on ground at times. Denies syncope, fall, head injury. Reports some increased blurred vision, no CONNORS, worsening numbness/tingling (has some chronic intermittent tingling in fingers). Reports poorer appetite since COVID, has lost weight. 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 Taking HCTZ, lisinopril, celexa until the day before admit when his PCP told him to stop the HCTZ. Denies any prior h/o hyponatremia. Drinks few beers several times a week, up to 6 beers daily on the wknd. Uses medical marijuana, denies any other illicits. 02/25 Patient no acute events. Patient was started on d5W. Vitals are stable. alert and oriented. Na 121 Lines- PIVS Tubes- none Gtts - Dw5 at 75 ml MDM Lab Data Labs: Laboratory Results - last 24 hr 02/25/24 02/25/24 02/25/24 14:20 20:00 20:25 WBC 8.5 RBC 3.99 L Hgb 12.3 L Hct 33.5 L MCV 84.0 MCH 30.8 MCHC 36.7 H RDW Std Deviation 42.0 RDW Coeff of Inocente 13.5 Plt Count 175 MPV 8.6 Immature Gran % (Auto) 0.600 Neut % (Auto) 64.5 Lymph % (Auto) 20.4 [place] % (Auto) 13.3 H Eos % (Auto) 0.6 Baso % (Auto) 0.6 Absolute Neuts (auto) 5.5 Absolute Lymphs (auto) 1.73 Nucleated RBC % 0 PT 14.7 INR 1.2 APTT 32.0 Sodium 113 L* 117 L* Potassium 3.4 L 2.8 L Chloride 75 L 77 L Carbon Dioxide 26.0 31.0 Anion Gap 12 9 BUN 16 17 Creatinine 1.23 1.17 Estim Creat Clear Calc 75.36 78.99 Est GFR (MDRD) Af Amer 77 82 Est GFR (MDRD) Non-Af 64 68 BUN/Creatinine Ratio 13.0 14.5 Glucose 98 91 Serum Osmolality 248 L Uric Acid 4.0 Calcium 8.7 8.6 Phosphorus Magnesium Troponin I High Sens 6 TSH Cortisol Urine Osmolality 121 Ur Random Sodium 11 02/25/24 02/26/24 02/26/24 22:20 00:30 03:45 WBC 7.1 RBC 3.76 L Hgb 11.6 L Hct 32.7 L MCV 87.0 MCH 30.9 MCHC 35.5 RDW Std Deviation 43.8 RDW Coeff of Inocente 13.9 Plt Count 154 MPV 8.6 Immature Gran % (Auto) 0.400 Neut % (Auto) 60.1 Lymph % (Auto) 25.0 [place] % (Auto) 12.3 H Eos % (Auto) 1.4 Baso % (Auto) 0.8 Absolute Neuts (auto) 4.3 Absolute Lymphs (auto) 1.78 Nucleated RBC % 0 PT INR APTT Sodium 117 L* 117 L* 118 L* Potassium 3.7 3.7 Chloride 79 L 81 L Carbon Dioxide 30.0 27.0 Anion Gap 8 10 BUN 18 17 Creatinine 1.07 1.06 Estim Creat Clear Calc 86.38 87.19 Est GFR (MDRD) Af Amer 91 92 Est GFR (MDRD) Non-Af 75 76 BUN/Creatinine Ratio 16.8 16.0 Glucose 86 91 Serum Osmolality Uric Acid Calcium 8.4 L 8.4 L Phosphorus 2.4 L Magnesium 2.0 Troponin I High Sens TSH 7.29 H 5.47 H Cortisol 21.90 Urine Osmolality Ur Random Sodium 02/26/24 11:30 WBC RBC Hgb Hct MCV MCH MCHC RDW Std Deviation RDW Coeff of Inocente Plt Count MPV Immature Gran % (Auto) Neut % (Auto) Lymph % (Auto) [place] % (Auto) Eos % (Auto) Baso % (Auto) Absolute Neuts (auto) Absolute Lymphs (auto) Nucleated RBC % PT INR APTT Sodium 121 L Potassium Chloride Carbon Dioxide Anion Gap BUN Creatinine Estim Creat Clear Calc Est GFR (MDRD) Af Amer Est GFR (MDRD) Non-Af BUN/Creatinine Ratio Glucose Serum Osmolality Uric Acid Calcium Phosphorus Magnesium Troponin I High Sens TSH Cortisol Urine Osmolality Ur Random Sodium Radiography Diagnostic Testing: Clinical Impression(s) from Imaging Studies Brain CT 02/25/24 14:11 IMPRESSION: Chronic involutional changes of the brain. Electronically Signed: González Finnegan MD at 15:23 EDT , Chest X-Ray 02/25/24 14:40
[2024-02-26] MEDS: Dextrose 5%-Water (1000mL Bag) 1,000 ML 75 ML IV (14:53)
[2024-02-26 15:21] LABS: Sodium Level 122 mmol/L (136-145)
[2024-02-26 18:47] LABS: Sodium Level 121 mmol/L (136-145)
--- NOTE | 2024-02-26 22:30 | PCM.PN.BLA ---
Progress Note Nephrology Plan of Care. Full consultation report to follow. Chart reviewed. Patient is a 58-year-old man with past history of HTN and IRIS. The patient presents with 1 week history of light headedness. The patient was found to have hyponatremia with serum Na level of 113 (02/25/24 at 2:20 pm). Urine Na was <20 and urine Osm >100. BP was soft on presentation, and the patient had been on lisinopril prior to admission. Urine studies are c/w hyponatremia from decreased EBV. The patient was initially was treated with 3% saline in ED, but was switched over to D5W at around 8pm last night because of concern regarding overly rapid correction. Despite around 24 hr of D5W at 30 ml/h, serum Na has increased at relatively safe rate and is most recently 121 at 6:38 pm. Since serum Na has been increasing at safer rate, I will stop D5W. Treatment at this point is to encourage patient to push solute (protein) intake. Keep K in normal range will also help to attenuate drop of serum Na. Limit fluid to <1.5 L/day. Goal is to increase serum Na by around 6 mmol/L/day but no 8 mmol/L/day to avoid ODS. Aim for Na of 124-126 mmol/L in am. Hold SSRI for now. Continue to check Na q4h for now. Prudencio Da Silva MD
[2024-02-26] MEDS: MELATONIN 3 MG TABLET PO (23:12)
[2024-02-26 23:40] LABS: Anion Gap 7 (5-15); BUN 14 mg/dL (7-18); BUN/Creat Ratio 14.1 RATIO (10-20); Calcium,Total 9.1 mg/dL (8.5-10.1); Chloride 85 mmol/L (98-107); EST Glomerular Filtration Rate 81 mL/min (>60); Est Glom Filt Rate - Afr Amer 99 mL/min (>60); Estimated Creatinine Clearance 92.82 ml/min; Glucose 85 mg/dL (74-106); Potassium 4.7 mmol/L (3.5-5.1); Sodium Level 118 mmol/L (136-145)
[2024-02-27] VITALS (14 sets, daily range): BP systolic 80–136; BP diastolic 57–97; PULSE 54–68; RESP 13–18; TEMP 36.2–37; O2SAT 94–100; BMI 28.7
[2024-02-27 05:56] LABS: Absolute Lymphocyte Count 2.36 X10^3/uL (0.83-4.51); Absolute Neutrophil Count 4.3 X10^3/uL (2.0-7.7); Basophil# 0.07 X10^3/uL; Basophil% 0.9 % (0-1); Eosinophil# 0.17 X10^3/uL; Eosinophils% 2.1 % (0-5); Hematocrit 36.5 % (40-54); Hemoglobin 12.7 g/dL (13.0-16.5); Lymphocyte # 2.36 X10^3/ul (0.83-4.51); Lymphocyte % 29.8 % (19-41); Mean Corp Hgb Conc 34.8 g/dL (32-36); Mean Corpuscular Hgb 31.1 pg (27.0-32.0); Mean Corpuscular Volume 89.5 fL (80-94); Mean Platelet Vol. 8.9 fl (6.2-12.0); Monocyte# 0.95 X10^3/uL; NRBC Flagged by Analyzer 0 % (0-5); Neutrophil # 4.34 X10^3/uL (2.7-7.7); Neutrophil % 54.7 % (47-70); Platelet Count 161 K/mm3 (150-450); RBC Distribution Width CV 14.3 % (11.6-14.6); Red Blood Count 4.08 M/mm3 (4.6-6.2); White Blood Count 7.9 K/mm3 (4.4-11.0)
[2024-02-27 06:05] LABS: Anion Gap 9 (5-15); BUN 12 mg/dL (7-18); BUN/Creat Ratio 12.7 RATIO (10-20); Calcium,Total 9.1 mg/dL (8.5-10.1); Chloride 87 mmol/L (98-107); Creatinine, Serum 0.94 mg/dL (0.70-1.30); EST Glomerular Filtration Rate 87 mL/min (>60); Est Glom Filt Rate - Afr Amer 105 mL/min (>60); Estimated Creatinine Clearance 97.52 ml/min; Glucose 101 mg/dL (74-106); Potassium 4.6 mmol/L (3.5-5.1); Sodium Level 122 mmol/L (136-145)
[2024-02-27] MEDS: Atenolol 50 MG Tablet PO (07:26)
[2024-02-27] MEDS: Potassium Chloride Oral Tablet 20 MEQ 40 MEQ PO (07:26)
[2024-02-27] MEDS: Enoxaparin 40 MG/0.4 ML Syringe SC (07:27)
[2024-02-27] MEDS: Folic Acid 1 MG Tablet PO (07:27)
[2024-02-27] MEDS: Thiamine Hydrochloride 100 MG Tablet PO (07:28)
[2024-02-27] MEDS: Multivitamins,Therapeutic Tablet 1 TABLET PO (07:28)
[2024-02-27 09:52] LABS: Urine Sodium 7 mmol/L (Not Establ.)
[2024-02-27 10:01] LABS: Osmolality, Urine 153 mOsm/KG
--- NOTE | 2024-02-27 11:09 | PN.HOSP_ITS ---
Reason for Visit Reason for Visit: Diagnoses Hypo-osmolality and hyponatremia (02/25/24) Anxiety disorder, unspecified (02/25/24) Essential (primary) hypertension (02/25/24) Dizziness and giddiness (02/25/24) Objective Data Objective Data Vital Signs: Vital Signs Temp Pulse Resp BP Pulse Ox O2 Del Method 98.6 F 68 16 123/97 H 100 Room Air 02/27/24 08:00 02/27/24 10:00 02/27/24 10:00 02/27/24 10:00 02/27/24 10:00 02/27/24 10:00 Oxygen Delivery Method Room Air Weight: 205 lb 11.06 oz Body Mass Index (BMI) 28.7 Intake & Output: Intake and Output for Last 24 Hours 02/25/24 02/26/24 02/27/24 23:59 23:59 23:59 Intake Total 668.77 / 668.77 2603.25 / 2603.25 513 / 513 Output Total 500 / 500 4850 / 4850 1150 / 1150 Balance 168.77 / 168.77 -2246.75 / -2246.75 -637 / -637 Lab / Micro Data 02/27/24 05:35 02/27/24 05:35 Labs: Laboratory Results - last 24 hr 02/26/24 11:30: Sodium 121 L 02/26/24 14:36: Sodium 122 L 02/26/24 18:33: Sodium 121 L 02/26/24 23:05: Sodium 118 L*, Potassium 4.7, Chloride 85 L, Carbon Dioxide 26.0, Anion Gap 7, BUN 14, Creatinine 1.00, Estim Creat Clear Calc 92.82, Est GFR (MDRD) Af Amer 99, Est GFR (MDRD) Non-Af 81, BUN/Creatinine Ratio 14.1, Glucose 85, Calcium 9.1 02/27/24 05:35: WBC 7.9, RBC 4.08 L, Hgb 12.7 L, Hct 36.5 L, MCV 89.5, MCH 31.1, MCHC 34.8, RDW Std Deviation 47.0 H, RDW Coeff of Inocente 14.3, Plt Count 161, MPV 8.9, Immature Gran % (Auto) 0.500, Neut % (Auto) 54.7, Lymph % (Auto) 29.8, [place] % (Auto) 12.0 H, Eos % (Auto) 2.1, Baso % (Auto) 0.9, Absolute Neuts (auto) 4.3, Absolute Lymphs (auto) 2.36, Nucleated RBC % 0, Sodium 122 L, Potassium 4.6, C hloride 87 L, Carbon Dioxide 26.0, Anion Gap 9, BUN 12, Creatinine 0.94, Estim Creat Clear Calc 97.52, Est GFR (MDRD) Af Amer 105, Est GFR (MDRD) Non-Af 87, BUN/Creatinine Ratio 12.7, Glucose 101, Calcium 9.1 02/27/24 09:34: Urine Potassium 20.0 02/27/24 09:39: Urine Osmolality 153, Ur Random Sodium 7 Physical Exam Narrative Seen and examined. Sodium increased appropriately. D5W was discontinued yesterday after patient had hypertonic saline at the time of admission. No acute event overnight. Sodium increased appropriately. Patient drinks alcohol. He states he usually drinks 2-3 tall bottles of beer per day. Does not drink hard liquor including whiskey, gin or vodka. Denies a smoking. Patient having dizziness since past 3 days foggy and off balance. Patient also had some blurry vision but denies headache or neck pain. Physical exam General: Alert, Oriented x3, Cooperative. BMI 29.5 kg/m?. HEENT: Atraumatic, PERRLA, EOMI, Normocephalic Oral: No Gingival or Mucosal Lesions/ Ulcerations Neck: Supple, No JVD, Negative Carotid Bruits Chest wall/Lungs: Air entry diminished in bilateral lung bases. No crepitation/rhonchi Cardiovascular: Regular rate, Regular Rhythm, Normal S1, Normal S2, No M/G/R Abdomen: Bowel Sounds Present, Soft, Non Tender, Non-Distended : No dysuria. No renal angle tenderness. No suprapubic tenderness. Extremities: No edema, Capillary Refill Less than 3 Seconds Skin: No rashes, No breakdown Musculoskeletal: No Tenderness to Palpation of Joints or Extremities Neurological: Cranial nerves II-XII grossly intact, DTR 2+/4. No acute focal neurological deficit. Psych/Mental Status: Normal Affect, Appropriate. Assessment & Plan Assessment/Plan (1) Dizziness: (2) Hyponatremia: (3) Anxiety: (4) Hypertension: QUALIFIERS: Hypertension type: primary hypertension Qualified Code(s): I10 - Essential (primary) hypertension PLAN: Tiago ROMEO, is a 58 M came to emergency department with lightheadedness, feels off balance and disoriented that has been going on for about a week; and found to have a low sodium in the setting of alcoholism and on diuretics. Acute hyponatremia/dizziness probably from alcohol use or hyponatremia. Sodium improved from 113-1 18. Increase to 5 mEq in 18 hours. Currently not on IV fluid normal saline. Insole Presser is consulted. CT brain was independently interpreted; does not show acute pathology. Patient had hypertonic saline. After that he had D5W to decrease sudden increase in serum sodium. Reports recently being taken off HCTZ. Hold lisinopril. Takes citalopram as needed, hold for now. Citalopram/other SSRI also causes hyponatremia Club Director consulted. Discussed case with photo tech who recommended to continue current management. Urine osmolarity to 121 and urine sodium low level . Serum osmolality 248. Uric acid 4.0. TSH elevated 7.29. Serum cortisol level normal. Overall seems probably due to low solute intake and beer potomania. 02/26: D5W was discontinued yesterday by plasma processing centrifuge operator. Serum sodium was 121 yesterday and in the morning 122. Fluid restriction 1.5 L. Patient has low solute intake therefore Ensure ordered. Discussed with the plasma processing centrifuge operator. Urine osmolality 153, urine sodium 7. Urine potassium 20 indicative of low solute intake and decreased effective renal plasma flow. Monitor serum sodium every 8 hourly. Patient sodium parameter is about 120 therefore okay for transfer to PCU Prolonged QTc Serum magnesium 2.0. Phosphorus 2.4. Avoid QT prolongation drugs. Avoid Zofran check magnesium Hypertension Blood pressure is stable Home blood pressure medications continued Trend blood pressure and adjust blood pressure medications. Alcoholism Plan CIWA protocol with as needed Ativan. Thiamine, folic acid and multivitamins ordered. DVT prophylaxis: SCDs ordered. Total time of the visit including total time spent in counseling or coordination of care, (more than 50% of the total time, spent in obtaining medical information from nurses and other ancillary care providers,explaining to the patient about labs, imaging, diagnosis and management of active complex medical conditions), discussion with photo tech and nephrology, review of labs and imaging is 40 minutes. Advance care planning: Discussed with patient and family advanced directives as well as CODE STATUS. Explained various CODE STATUS: FULL CODE, DNR CCA, DNR CCA with no intubation, and DNR CC- and what each meant. Patient elected to be a full code with CPR and intubation if warranted. Order was placed. Surrogate decision maker is his Sister Marley Paul. Laboratory Results 02/26/24 11:30: Sodium 121 L 02/26/24 14:36: Sodium 122 L 02/26/24 18:33: Sodium 121 L 02/26/24 23:05: Sodium 118 L*, Potassium 4.7, Chloride 85 L, Carbon Dioxide 26.0, Anion Gap 7, BUN 14, Creatinine 1.00, Estim Creat Clear Calc 92.82, Est GFR (MDRD) Af Amer 99, Est GFR (MDRD) Non-Af 81, BUN/Creatinine Ratio 14.1, Glucose 85, Calcium 9.1 02/27/24 05:35: WBC 7.9, RBC 4.08 L, Hgb 12.7 L, Hct 36.5 L, MCV 89.5, MCH 31.1, MCHC 34.8, RDW Std Deviation 47.0 H, RDW Coeff of Inocente 14.3, Plt Count 161, MPV 8.9, Immature Gran % (Auto) 0.500, Neut % (Auto) 54.7, Lymph % (Auto) 29.8, [place] % (Auto) 12.0 H, Eos % (Auto) 2.1, Baso % (Auto) 0.9, Absolute Neuts (auto) 4.3, Absolute Lymphs (auto) 2.36, Nucleated RBC % 0, Sodium 122 L, Potassium 4.6, C hloride 87 L, Carbon Dioxide 26.0, Anion Gap 9, BUN 12, Creatinine 0.94, Estim Creat Clear Calc 97.52, Est GFR (MDRD) Af Amer 105, Est GFR (MDRD) Non-Af 87, BUN/Creatinine Ratio 12.7, Glucose 101, Calcium 9.1 02/27/24 09:34: Urine Potassium 20.0 02/27/24 09:39: Urine Osmolality 153, Ur Random Sodium 7 Charges/Coding Visit Charges Inpatient E&M: 18712 Subs Hosp L3
--- NOTE | 2024-02-27 11:13 | PN.CC_ITS ---
Objective Data Objective Data Vital Signs: Vital Signs Last response 3 Temperature 37.0 C 02/27/24 08:00 Temperature Source Temporal 02/27/24 08:00 Pulse Rate 68 02/27/24 10:00 Pulse Strength Normal (2+) 02/27/24 07:56 Respiratory Rate 16 02/27/24 10:00 Respiratory Effort Normal, Non-Labored 02/26/24 20:00 Respiratory Depth Normal 02/26/24 20:00 Respiratory Pattern Normal 02/26/24 20:00 Blood Pressure 123/97 H 02/27/24 10:00 Blood Pressure Mean 105 02/27/24 10:00 Blood Pressure Source Monitor 02/27/24 10:00 Blood Pressure Position Semi-Fowlers 02/27/24 10:00 Blood Pressure Location Right Arm 02/27/24 10:00 Pulse Ox 100 02/27/24 10:00 Oxygen Delivery Method Room Air 02/27/24 10:00 I&O: I&O Last 24 Hours 3 02/26/24 02/26/24 02/27/24 11:59 23:59 11:59 Intake Total 1999 / 2603.25 603.25 / 2603.25 513 / 513 Output Total 2500 / 4850 2350 / 4850 1150 / 1150 Balance -500 / -2246.75 -1746.75 / -2246.75 -637 / -637 I&O: Total Stay 3 02/25/24 13:43 thru 02/27/24 09:51 Intake Total 3785.02 Output Total 6500 Balance -2714.98 Current Meds Ordered / Administered: Current meds ordered / Administered 3 Generic Name Dose Route Start Last Admin Trade Name Freq PRN Reason Stop Dose Admin Acetaminophen 650 mg 02/25/24 16:38 02/26/24 18:23 Acetaminophen 325 Mg Tablet PO 650 mg Q6H PRN PRN Administration Pain 1-10 Or Fever>100.7 Albuterol Sulfate 2.5 mg 02/25/24 16:38 Albuterol 2.5 Mg/3 Ml Vial.Neb. INHALATION Q2H PRN PRN SOB &/OR WHEEZING Atenolol 50 mg 02/26/24 10:00 02/27/24 07:26 Atenolol 50 Mg Tablet PO 50 mg DAILY DON Administration Protocol Enoxaparin Sodium 40 mg 02/26/24 10:00 02/27/24 07:27 Enoxaparin 40 Mg/0.4 Ml Syringe SC 40 mg DAILY DON Administration Folic Acid 1 mg 02/26/24 08:00 02/27/24 07:27 Folic Acid 1 Mg Tablet PO 1 mg BREAKFAST DON Administration Glycerin/Hypromellose/Polyethylene 1 drp 02/25/24 16:46 Glycerin/Hypromellose/Kbs524 15 Ml Bottle EACH EYE DAILY PRN dry eyes Sodium Chloride 250 mls @ 15 mls/hr 02/25/24 16:49 IV .[id number] PRN Additional IVPB Infusion Sodium Chloride 250 mls @ 15 mls/hr 02/25/24 16:49 IV .[id number] PRN Saline Flush Lorazepam 2 mg 02/25/24 16:54 Lorazepam 2 Mg/Ml Syringe IV UD PRN CIWA score >/=15. Protocol Lorazepam 2 mg 02/25/24 16:54 Lorazepam 2 Mg/Ml Syringe IV Q2H PRN PRN CIWA score > 8 but <15 Protocol Lorazepam 2 mg 02/25/24 16:54 Lorazepam 1 Mg Tablet PO UD PRN CIWA score >/=15. Protocol Lorazepam 2 mg 02/25/24 16:54 Lorazepam 1 Mg Tablet PO Q2H PRN PRN CIWA score > 8 but <15 Protocol Melatonin 3 mg 02/25/24 16:38 02/26/24 23:12 Melatonin 3 Mg Tablet PO 3 mg QHS PRN PRN Administration INSOMNIA Multivitamins 1 tablet 02/26/24 08:00 02/27/24 07:28 Multivitamins,Therapeutic Tablet PO 1 tablet BREAKFAST DON Administration Potassium Chloride 40 meq 02/26/24 08:00 02/27/24 07:26 Potassium Chloride Oral Tablet 20 Meq PO 02/29/24 08:01 40 meq DAILYCM DON Administration Prochlorperazine Edisylate 5 mg 02/25/24 16:38 Prochlorperazine 10 Mg/2 Ml Vial IV Q4H PRN PRN Breakthrough Nausea/Vomiting Senna/Docusate Sodium 2 tablet 02/25/24 16:38 Senna/Docusate Sodium 1 Tablet PO BID PRN Constipation Sodium Chloride 10 - 40 ml 02/25/24 16:49 02/25/24 22:25 0.9% Saline Lock 10 Ml Syringe IV 40 ml UD PRN Administration SALINE FLUSH Thiamine HCl 100 mg 02/26/24 08:00 02/27/24 07:28 Thiamine Hydrochloride 100 Mg Tablet PO 100 mg BREAKFAST DON Administration Lab / Micro Data 02/27/24 05:35 02/27/24 05:35 Labs: Laboratory Results - last 24 hr 02/26/24 11:30: Sodium 121 L 02/26/24 14:36: Sodium 122 L 02/26/24 18:33: Sodium 121 L 02/26/24 23:05: Sodium 118 L*, Potassium 4.7, Chloride 85 L, Carbon Dioxide 26.0, Anion Gap 7, BUN 14, Creatinine 1.00, Estim Creat Clear Calc 92.82, Est GFR (MDRD) Af Amer 99, Est GFR (MDRD) Non-Af 81, BUN/Creatinine Ratio 14.1, Glucose 85, Calcium 9.1 02/27/24 05:35: WBC 7.9, RBC 4.08 L, Hgb 12.7 L, Hct 36.5 L, MCV 89.5, MCH 31.1, MCHC 34.8, RDW Std Deviation 47.0 H, RDW Coeff of Inocente 14.3, Plt Count 161, MPV 8.9, Immature Gran % (Auto) 0.500, Neut % (Auto) 54.7, Lymph % (Auto) 29.8, [place] % (Auto) 12.0 H, Eos % (Auto) 2.1, Baso % (Auto) 0.9, Absolute Neuts (auto) 4.3, Absolute Lymphs (auto) 2.36, Nucleated RBC % 0, Sodium 122 L, Potassium 4.6, C hloride 87 L, Carbon Dioxide 26.0, Anion Gap 9, BUN 12, Creatinine 0.94, Estim Creat Clear Calc 97.52, Est GFR (MDRD) Af Amer 105, Est GFR (MDRD) Non-Af 87, BUN/Creatinine Ratio 12.7, Glucose 101, Calcium 9.1 02/27/24 09:34: Urine Potassium 20.0 02/27/24 09:39: Urine Osmolality 153, Ur Random Sodium 7 Assessment and Plan . Assessment and plan: # Severe hyponatremia - may be multifactorial in setting of excessive water/beer intake, HCTZ # Hypokalemia # EtOH use # HTN # h/o COVID-19 ~6 months ago # Anxiety disorder PLAN: -patietn stable with sodium of 122 -cont to montior sodium - patient will be placed on sodium restriction -CIWA protocol, monitor for EtOH withdrawal sx -Thiamine/folate/MVI -Cont holding HCTZ FEN/GI: regular diet Proph DVT/GI: Lovenox Critical Care Time: 42 mins The entirety of this encounter was completed via telemedicine Physical Exam Const alert and oriented x3 General Appearance: cooperative HEENT normocephalic and head/scalp atraumatic Eyes PERRL Neck full ROM Resp Effort and Inspection: able to speak in complete sentences Cardio regular rate, S1 normal heart sound and S2 normal heart sound GI normal to inspection, nondistended, normoactive bowel sounds Extremity no clubbing, cyanosis or edema Neuro oriented x3 and CN's II-XII intact bilaterally Subjective Subjective Patient had no acute events. Patient on a 1500 fluid restrictions. Last sodium 122
[2024-02-27] MEDS: Acetaminophen 325 MG Tablet 650 MG PO ×2 (12:09→21:10)
[2024-02-27 14:51] LABS: Sodium Level 122 mmol/L (136-145)
--- NOTE | 2024-02-27 19:15 | CON.PCM.RE_ITS ---
Assessment & Plan Assessment/Plan (1) Hyponatremia: PLAN: Plan Impression/Plan: The patient is a 58-year-old male with past history of hypertension and generalized anxiety disorder. Patient presented to hospital with lightheadedness and was found to have serum sodium 113 mmol/L. Nephrology is following for hyponatremia. Hyponatremia. Patient presented with severe hyponatremia with serum sodium of 113 mmol/L on 02/25/2024. Urine studies on 02/17/2024 were consistent with both solute and volume depletion. Urine sodium was 11 mmol/L and urine osmolality was 121 mOsm/kg. The patient had been on citalopram prior to admission which can cause SIADH. However, we would have seen urine sodium greater than 30 mmol/L with SIADH related to SSRI. The patient does drink alcohol regularly. The most recent serum sodium was 121 mmol/L, and he is asymptomatic. There is no need for hypertonic saline. Most likely, hyponatremia on presentation is from volume depletion from prior use of diuretic (patient was on hydrochlorothiazide until around 1 week prior to presentation) along with lack of solute intake which may be related to alcohol use. Therefore, it would not have taken much water or hypotonic fluids to cause hyponatremia in his case. Treatment for hyponatremia due to volume and solute depletion is to push oral intake of solute such as protein. Keep MAP above [address] patient on fluid restriction for now until serum sodium improves further. We will place him on 1.5 L fluid restriction. Continue to monitor serum sodium serially. If serum sodium fails to improve further from 121 mmol/L, we will recheck urine studies tomorrow. HPI Consult Data Date of Consult: 02/27/24 HPI Narrative Reason for Consultation: Hyponatremia HPI Narrative: The patient is a 58-year-old male with past history of hypertension and generalized anxiety disorder. Patient presented to the hospital on 02/25/2024 with 1 week history of lightheadedness. During evaluation in ED, patient was found to have serum sodium of 113 mmol/L on 02/25/2024 (2:20 PM). Patient was also found to have urine sodium of less than 20 mmol/L and urine osmolality of 121 mOsm/kg. Patient was initially treated with 3% saline, but was then placed on D5W at around 8 PM on 02/25/2024 because of concern of overly rapid correction of hyponatremia. D5W was stopped last night around 8:30 PM on 02/26/2024. Patient denies current headache, nausea, vomiting, or ataxia. He is not confused. Prior to admission, the patient denies chronic headache, nausea, vomiting, or confusion either. Patient does report decreased appetite for a few weeks prior to admission. The patient was on hydrochlorothiazide but has stopped this medication on 02/17/2024. Patient has also been on citalopram for anxiety. However, he reports that he does not take citalopram on a regular basis. He denies chronic use of NSAIDs or other OTCs. [facility] Medical History Anxiety Hypertension Home Medications ?Medication ?Instructions ?Recorded ?Last Taken ?Type artificial tears(hypromellose) 0.5 1 drp EACH EYE DAILY PRN dry eyes 02/25/24 Unknown History % eye drops atenolol 50 mg tablet 50 mg PO DAILY BLOOD PRESSURE 02/25/24 02/25/24 History citalopram 20 mg tablet 20 mg PO DAILY PRN anxiety 02/25/24 02/25/24 History lisinopril 30 mg tablet 30 mg PO DAILY BLOOD PRESSURE 02/25/24 02/25/24 History Allergy/AdvReac Type Severity Reaction Status Date / Time No Known Allergies Allergy Verified 02/25/24 13:45 Family History Other Cancer Heart disease Surgical History Hx of foot surgery Social History Smoking Status: Never smoker alcohol intake: current alcohol intake frequency: a few times a month substance use type: marijuana ROS ROS Narrative As per HPI, otherwise noncontributory Physical Exam Narrative General: Alert and oriented x3, NAD. HEENT: Normocephalic, atraumatic. Mucous membrane moist without erythema. PERRLA, EOMI. Hearing is intact. Neck: Supple, no JVD. Trachea is midline. No thyromegaly or lymphadenopathy. Cardiovascular: Normal S1, S2. No rubs, murmurs, or gallops. Respiratory: Lungs are clear to auscultation bilaterally. No wheezing, rhonchi, or rales. Abdomen: Normal bowel sounds, soft, nontender, no guarding or rebound, no organomegaly. Extremities: No clubbing, cyanosis, or edema. Musculoskeletal: Full passive range of motion, no joint swelling. Psychiatric: Normal mood and affect. Skin: Warm and dry, no rash. Neurologic: Cranial nerve II to XII are grossly intact. No focal neurologic deficits. Lab / Micro Data 02/27/24 05:35 02/27/24 13:15 Labs: Laboratory Results - last 24 hr 02/26/24 23:05: Sodium 118 L*, Potassium 4.7, Chloride 85 L, Carbon Dioxide 26.0, Anion Gap 7, BUN 14, Creatinine 1.00, Estim Creat Clear Calc 92.82, Est GFR (MDRD) Af Amer 99, Est GFR (MDRD) Non-Af 81, BUN/Creatinine Ratio 14.1, Glucose 85, Calcium 9.1 02/27/24 05:35: WBC 7.9, RBC 4.08 L, Hgb 12.7 L, Hct 36.5 L, MCV 89.5, MCH 31.1, MCHC 34.8, RDW Std Deviation 47.0 H, RDW Coeff of Inocente 14.3, Plt Count 161, MPV 8.9, Immature Gran % (Auto) 0.500, Neut % (Auto) 54.7, Lymph % (Auto) 29.8, [place] % (Auto) 12.0 H, Eos % (Auto) 2.1, Baso % (Auto) 0.9, Absolute Neuts (auto) 4.3, Absolute Lymphs (auto) 2.36, Nucleated RBC % 0, Sodium 122 L, Potassium 4.6, C hloride 87 L, Carbon Dioxide 26.0, Anion Gap 9, BUN 12, Creatinine 0.94, Estim Creat Clear Calc 97.52, Est GFR (MDRD) Af Amer 105, Est GFR (MDRD) Non-Af 87, BUN/Creatinine Ratio 12.7, Glucose 101, Calcium 9.1 02/27/24 09:34: Urine Potassium 20.0 02/27/24 09:39: Urine Osmolality 153, Ur Random Sodium 7 02/27/24 13:15: Sodium 122 L
[2024-02-27 21:05] LABS: Sodium Level 123 mmol/L (136-145)
[2024-02-27] MEDS: MELATONIN 3 MG TABLET PO (21:10)
[2024-02-27] MEDS: 0.9% Saline Lock 10 ML Syringe IV (21:10)
[2024-02-28] VITALS (9 sets, daily range): BP systolic 103–130; BP diastolic 69–83; PULSE 58–93; RESP 14–18; TEMP 36.2–37; O2SAT 94–100; BMI 28.5
[2024-02-28] MEDS: Acetaminophen 325 MG Tablet 650 MG PO ×2 (04:41→13:21)
[2024-02-28 06:41] LABS: Absolute Lymphocyte Count 1.53 X10^3/uL (0.83-4.51); Absolute Neutrophil Count 4.2 X10^3/uL (2.0-7.7); Basophil# 0.05 X10^3/uL; Basophil% 0.7 % (0-1); Eosinophil# 0.08 X10^3/uL; Eosinophils% 1.2 % (0-5); Hematocrit 35.9 % (40-54); Hemoglobin 12.3 g/dL (13.0-16.5); Lymphocyte # 1.53 X10^3/ul (0.83-4.51); Lymphocyte % 22.7 % (19-41); Mean Corp Hgb Conc 34.3 g/dL (32-36); Mean Corpuscular Hgb 30.6 pg (27.0-32.0); Mean Corpuscular Volume 89.3 fL (80-94); Mean Platelet Vol. 8.9 fl (6.2-12.0); Monocyte# 0.91 X10^3/uL; Monocyte% 13.5 % (0-10); NRBC Flagged by Analyzer 0 % (0-5); Neutrophil # 4.16 X10^3/uL (2.7-7.7); Neutrophil % 61.6 % (47-70); Platelet Count 148 K/mm3 (150-450); RBC Distribution Width CV 14.1 % (11.6-14.6); RBC Distribution Width SD 46.1 fl (35.1-43.9); Red Blood Count 4.02 M/mm3 (4.6-6.2); White Blood Count 6.8 K/mm3 (4.4-11.0)
[2024-02-28 07:21] LABS: Anion Gap 6 (5-15); BUN 11 mg/dL (7-18); BUN/Creat Ratio 11.8 RATIO (10-20); Calcium,Total 9.3 mg/dL (8.5-10.1); Chloride 91 mmol/L (98-107); Creatinine, Serum 0.93 mg/dL (0.70-1.30); EST Glomerular Filtration Rate 88 mL/min (>60); Est Glom Filt Rate - Afr Amer 106 mL/min (>60); Estimated Creatinine Clearance 98.42 ml/min; Glucose 106 mg/dL (74-106); Potassium 4.7 mmol/L (3.5-5.1); Sodium Level 122 mmol/L (136-145)
[2024-02-28] MEDS: Thiamine Hydrochloride 100 MG Tablet PO (08:13)
[2024-02-28] MEDS: Atenolol 50 MG Tablet PO (08:13)
[2024-02-28] MEDS: Multivitamins,Therapeutic Tablet 1 TABLET PO (08:13)
[2024-02-28] MEDS: Folic Acid 1 MG Tablet PO (08:13)
[2024-02-28] MEDS: Potassium Chloride Oral Tablet 20 MEQ 40 MEQ PO (08:14)
[2024-02-28] MEDS: Lisinopril 20 MG Tablet PO (08:15)
--- NOTE | 2024-02-28 08:53 | PN.HOSP_ITS ---
Reason for Visit Reason for Visit: Diagnoses Hypo-osmolality and hyponatremia (02/25/24) Anxiety disorder, unspecified (02/25/24) Essential (primary) hypertension (02/25/24) Dizziness and giddiness (02/25/24) Objective Data Objective Data Vital Signs: Vital Signs Temp Pulse Resp BP Pulse Ox O2 Del Method 97.1 F L 59 L 16 130/77 H 99 Room Air 02/28/24 04:32 02/28/24 04:32 02/28/24 04:32 02/28/24 04:32 02/28/24 04:32 02/28/24 04:32 Oxygen Delivery Method Room Air Weight: 93 kg Body Mass Index (BMI) 28.5 Intake & Output: Intake and Output for Last 24 Hours 02/26/24 02/27/24 02/28/24 23:59 23:59 23:59 Intake Total 2603.25 / 2603.25 1808 / 1808 222 / 222 Output Total 4850 / 4850 1150 / 1150 Balance -2246.75 / -2246.75 658 / 658 222 / 222 Lab / Micro Data 02/28/24 06:21 02/28/24 06:21 Labs: Laboratory Results - last 24 hr 02/27/24 09:34: Urine Potassium 20.0 02/27/24 09:39: Urine Osmolality 153, Ur Random Sodium 7 02/27/24 13:15: Sodium 122 L 02/27/24 20:40: Sodium 123 L 02/28/24 06:21: WBC 6.8, RBC 4.02 L, Hgb 12.3 L, Hct 35.9 L, MCV 89.3, MCH 30.6, MCHC 34.3, RDW Std Deviation 46.1 H, RDW Coeff of Inocente 14.1, Plt Count 148 L, MPV 8.9, Immature Gran % (Auto) 0.300, Neut % (Auto) 61.6, Lymph % (Auto) 22.7, [place] % (Auto) 13.5 H, Eos % (Auto) 1.2, Baso % (Auto) 0.7, Absolute Neuts (auto) 4.2, Absolute Lymphs (auto) 1.53, Nucleated RBC % 0, Sodium 122 L, Potassium 4.7, C hloride 91 L, Carbon Dioxide 25.0, Anion Gap 6, BUN 11, Creatinine 0.93, Estim Creat Clear Calc 98.42, Est GFR (MDRD) Af Amer 106, Est GFR (MDRD) Non-Af 88, BUN/Creatinine Ratio 11.8, Glucose 106, Calcium 9.3 Physical Exam Narrative Seen and examined. Sodium increased appropriately. D5W was discontinued yesterday after patient had hypertonic saline at the time of admission. No acute event overnight. Sodium increased appropriately. Patient drinks alcohol. He states he usually drinks 2-3 tall bottles of beer per day. Does not drink hard liquor including whiskey, gin or vodka. Denies a smoking. Patient having dizziness since past 3 days foggy and off balance. Patient also had some blurry vision but denies headache or neck pain. Physical exam General: Alert, Oriented x3, Cooperative. BMI 29.5 kg/m?. HEENT: Atraumatic, PERRLA, EOMI, Normocephalic Oral: No Gingival or Mucosal Lesions/ Ulcerations Neck: Supple, No JVD, Negative Carotid Bruits Chest wall/Lungs: Air entry diminished in bilateral lung bases. No crepitation/rhonchi Cardiovascular: Regular rate, Regular Rhythm, Normal S1, Normal S2, No M/G/R Abdomen: Bowel Sounds Present, Soft, Non Tender, Non-Distended : No dysuria. No renal angle tenderness. No suprapubic tenderness. Extremities: No edema, Capillary Refill Less than 3 Seconds Skin: No rashes, No breakdown Musculoskeletal: No Tenderness to Palpation of Joints or Extremities Neurological: Cranial nerves II-XII grossly intact, DTR 2+/4. No acute focal neurological deficit. Psych/Mental Status: Normal Affect, Appropriate. Assessment & Plan Assessment/Plan (1) Dizziness: (2) Hyponatremia: (3) Anxiety: (4) Hypertension: QUALIFIERS: Hypertension type: primary hypertension Qualified Code(s): I10 - Essential (primary) hypertension PLAN: Plan Patient is a 58-year-old gentleman who presented with disorientation found to have severe hyponatremia with sodium level of 113. Admitted to a monitored bed for subsequent management 1. Severe hyponatremia ? Secondary to chronic alcohol use. Patient was also on HCTZ which had recently been taken off. Admitted to a monitored bed treated with hypertonic saline with consultation placed to nephrology. Hypertonic solution subsequently discontinued patient currently on sodium tablet dose adjusted repeat labs ordered for a.m. 2. Hypertension - Blood pressure controlled, home medications continued with dose adjustment as needed 3. Chronic alcohol use ? Counseled on cessation 4. Prolonged QTc ? Patient phosphorus and magnesium were within normal limits plan is to avoid medications that can potentially worsen the patient QT 5. Physical deconditioning - Requested for PT OT eval and social welfare research worker to assist with discharge planning 6. DVT prophylaxis - On enoxaparin Time spent in the patient's overall evaluation,decision-making process, review of diagnostic data, adjustment of management, discussion with other providers, nursing nursing and ancillary staff involved in patient's care documentation, 40 Minutes Charges/Coding Visit Charges Inpatient E&M: 58996 Subs Hosp L2
[2024-02-28] MEDS: Sodium Chloride 1 GM Tablet PO (09:16)
[2024-02-28] MEDS: Sodium Chloride 1 GM Tablet 2 GM PO ×2 (13:20→21:24)
[2024-02-28] MEDS: LORazepam 1 MG Tablet 2 MG PO (13:21)
--- NOTE | 2024-02-28 14:07 | PN.RENAL_ITS ---
Subjective Subjective No new complaints Objective Data Objective Data Vital Signs: Vital Signs Temp Pulse Resp BP Pulse Ox O2 Del Method 98.1 F 93 18 108/83 H 98 Room Air 02/28/24 10:30 02/28/24 13:13 02/28/24 13:13 02/28/24 13:13 02/28/24 13:13 02/28/24 13:13 Oxygen Delivery Method Room Air Weight: 93 kg Body Mass Index (BMI) 28.5 Intake & Output: Intake and Output for Last 24 Hours 02/26/24 02/27/24 02/28/24 23:59 23:59 23:59 Intake Total 2603.25 / 2603.25 1808 / 1808 222 / 222 Output Total 4850 / 4850 1150 / 1150 Balance -2246.75 / -2246.75 658 / 658 222 / 222 Lab / Micro Data 02/28/24 06:21 02/28/24 06:21 Labs: Laboratory Results - last 24 hr 02/27/24 13:15: Sodium 122 L 02/27/24 20:40: Sodium 123 L 02/28/24 06:21: WBC 6.8, RBC 4.02 L, Hgb 12.3 L, Hct 35.9 L, MCV 89.3, MCH 30.6, MCHC 34.3, RDW Std Deviation 46.1 H, RDW Coeff of Inocente 14.1, Plt Count 148 L, MPV 8.9, Immature Gran % (Auto) 0.300, Neut % (Auto) 61.6, Lymph % (Auto) 22.7, [place] % (Auto) 13.5 H, Eos % (Auto) 1.2, Baso % (Auto) 0.7, Absolute Neuts (auto) 4.2, Absolute Lymphs (auto) 1.53, Nucleated RBC % 0, Sodium 122 L, Potassium 4.7, C hloride 91 L, Carbon Dioxide 25.0, Anion Gap 6, BUN 11, Creatinine 0.93, Estim Creat Clear Calc 98.42, Est GFR (MDRD) Af Amer 106, Est GFR (MDRD) Non-Af 88, BUN/Creatinine Ratio 11.8, Glucose 106, Calcium 9.3 Physical Exam Narrative General: Alert and oriented x3, NAD. HEENT: Normocephalic, atraumatic. Mucous membrane moist without erythema. PERRLA, EOMI. Hearing is intact. Neck: Supple, no JVD. Trachea is midline. No thyromegaly or lymphadenopathy. Cardiovascular: Normal S1, S2. No rubs, murmurs, or gallops. Respiratory: Lungs are clear to auscultation bilaterally. No wheezing, rhonchi, or rales. Abdomen: Normal bowel sounds, soft, nontender, no guarding or rebound, no organomegaly. Extremities: No clubbing, cyanosis, or edema. Musculoskeletal: Full passive range of motion, no joint swelling. Psychiatric: Normal mood and affect. Skin: Warm and dry, no rash. Neurologic: Cranial nerve II to XII are grossly intact. No focal neurologic deficits. Assessment & Plan Assessment/Plan (1) Hyponatremia: PLAN: Plan Impression/Plan: The patient is a 58-year-old male with past history of hypertension and generalized anxiety disorder. Patient presented to hospital with lightheadedness and was found to have serum sodium 113 mmol/L. Nephrology is following for hyponatremia. Hyponatremia. Patient presented with severe hyponatremia with serum sodium of 113 mmol/L on 02/25/2024. Urine studies on 02/17/2024 were consistent with both solute and volume depletion. Urine sodium was 11 mmol/L and urine osmolality was 121 mOsm/kg. The patient had been on citalopram prior to admission which can cause SIADH. The patient does drink alcohol regularly. Sodium remains around 122 Add salt tablets Asking about discharge plans if sodium is closer to 130 tomorrow can be discharged
[2024-02-29 03:35] VITALS: BP 133/90; PULSE 79; RESP 16; TEMP 36.6; O2SAT 100
[2024-02-29] MEDS: Sodium Chloride 1 GM Tablet 2 GM PO (05:38)
[2024-02-29 06:00] VITALS: BMI 28.5
[2024-02-29 06:13] LABS: Urine Sodium < 5 mmol/L (Not Establ.)
[2024-02-29 06:38] LABS: Osmolality, Urine 441 mOsm/KG
[2024-02-29 06:47] LABS: Absolute Lymphocyte Count 2.41 X10^3/uL (0.83-4.51); Basophil# 0.07 X10^3/uL; Basophil% 0.8 % (0-1); Eosinophils% 1.1 % (0-5); Hematocrit 36.6 % (40-54); Hemoglobin 12.2 g/dL (13.0-16.5); Lymphocyte # 2.41 X10^3/ul (0.83-4.51); Lymphocyte % 27.7 % (19-41); Mean Corp Hgb Conc 33.3 g/dL (32-36); Mean Corpuscular Hgb 30.8 pg (27.0-32.0); Mean Corpuscular Volume 92.4 fL (80-94); Mean Platelet Vol. 8.9 fl (6.2-12.0); Monocyte# 1.09 X10^3/uL; Monocyte% 12.5 % (0-10); NRBC Flagged by Analyzer 0 % (0-5); Neutrophil % 57.6 % (47-70); Platelet Count 186 K/mm3 (150-450); RBC Distribution Width CV 14.7 % (11.6-14.6); RBC Distribution Width SD 50.3 fl (35.1-43.9); Red Blood Count 3.96 M/mm3 (4.6-6.2); White Blood Count 8.7 K/mm3 (4.4-11.0)
[2024-02-29 07:32] LABS: Anion Gap 6 (5-15); BUN 15 mg/dL (7-18); Calcium,Total 9.2 mg/dL (8.5-10.1); Chloride 97 mmol/L (98-107); Creatinine, Serum 1.25 mg/dL (0.70-1.30); EST Glomerular Filtration Rate 63 mL/min (>60); Est Glom Filt Rate - Afr Amer 76 mL/min (>60); Estimated Creatinine Clearance 73.16 ml/min; Glucose 83 mg/dL (74-106); Phosphorus 4.3 mg/dL (2.5-4.9); Potassium 4.8 mmol/L (3.5-5.1); Sodium Level 128 mmol/L (136-145)
--- NOTE | 2024-02-29 08:50 | DS.PCM_ITS ---
Providers Date of Admission: 02/25/24 Date of Discharge: 02/29/24 Primary Care Physician: Dr. Omega Hoffman MD Consultations 02/25/24 16:38 Consult: Park Guide / Pulmonary Medicine Routine Consulting Provider: Jerry Corral Reason for Consult: hyponatremia EMERGENT Consult: No Notified: Yes Date Notified: 02/25/24 Time Notified: 16:00 Method of Notification: TIR 02/26/24 07:30 Consult: Nephrology Routine Consulting Provider: Harish Pool Reason for Consult: Hyponatremia, alcholoism EMERGENT Consult: No Notified: Yes Date Notified: 02/26/24 Time Notified: 07:30 Method of Notification: Text Reason For Visit: HYPONATREMIA Diagnosis Discharge Diagnosis (1) Hyponatremia: Status: Acute Code(s): E87.1 - Hypo-osmolality and hyponatremia Plan Patient is a 58-year-old gentleman who presented with disorientation found to have severe hyponatremia with sodium level of 113. Admitted to a monitored bed for subsequent management 1. Severe hyponatremia ? Secondary to chronic alcohol use. Patient was also on HCTZ which had recently been taken off. Admitted to a monitored bed treated with hypertonic saline with consultation placed to nephrology. Hypertonic solution subsequently discontinued patient currently on sodium tablet dose adjusted repeat labs ordered for a.m. -Patient sodium up to 128 plan is for patient to be discharged home 2. Hypertension - Blood pressure controlled, home medications continued with dose adjustment as needed 3. Chronic alcohol use ? Counseled on cessation 4. Prolonged QTc ? Patient phosphorus and magnesium were within normal limits plan is to avoid medications that can potentially worsen the patient QT 5. Physical deconditioning - Requested for PT OT eval and social media marketing manager to assist with discharge planning 6. DVT prophylaxis - On enoxaparin Time spent in the patient's overall evaluation,decision-making process, review of diagnostic data, adjustment of management, discussion with other providers, nursing nursing and ancillary staff involved in patient's care documentation, 35 Minutes Medications at Discharge Home Medications artificial tears(hypromellose) 0.5 % eye drops 1 drp EACH EYE DAILY PRN dry eyes 02/25/24 atenolol 50 mg tablet 50 mg PO DAILY BLOOD PRESSURE 02/25/24 citalopram 20 mg tablet 20 mg PO DAILY PRN anxiety 06/28/24 lisinopril 30 mg tablet 30 mg PO DAILY BLOOD PRESSURE 02/25/24 folic acid 1 mg tablet 1 mg PO BREAKFAST #60 tabs 02/29/24 multivitamin 1 tab PO BREAKFAST #60 tabs 02/29/24 sodium chloride 1,000 mg soluble tablet 1,000 mg PO TID #90 tabs 02/29/24 thiamine HCl (vitamin B1) 100 mg tablet (Vitamin B-1) 100 mg PO BREAKFAST #60 tabs 02/29/24 Physical Exam Narrative GENERAL: cooperative HEENT: Atraumatic; normocephalic EYES; Anicteric, Normal Conjunctiva NECK; supple, normal thyroid, RESPIRATORY: Diminished to auscultation CARDIOVASCULAR: Regular S1 S2, GI: soft, normoactive bowel sounds, : No Renal angle tenderness; EXTREMITIES: No edema, no clubbing, MUSCULOSKELETAL: no muscle wasting NEURO: Awake; no lateralizing signs. SKIN: No Rash PSYCH; Flat affect Weight / BMI Weight Weight: 92.8 kg Body Mass Index (BMI) 28.5 ABG / Lab / Microbiology Data 02/29/24 06:25 02/29/24 06:25 Laboratory: Laboratory Results - last 24 hr 02/29/24 05:45: Urine Osmolality 441, Ur Random Sodium < 5, Urine Potassium 68.0 02/29/24 06:25: WBC 8.7, RBC 3.96 L, Hgb 12.2 L, Hct 36.6 L, MCV 92.4, MCH 30.8, MCHC 33.3, RDW Std Deviation 50.3 H, RDW Coeff of Inocente 14.7 H, Plt Count 186, MPV 8.9, Immature Gran % (Auto) 0.300, Neut % (Auto) 57.6, Lymph % (Auto) 27.7, [place] % (Auto) 12.5 H, Eos % (Auto) 1.1, Baso % (Auto) 0.8, Absolute Neuts (auto) 5.0, Absolute Lymphs (auto) 2.41, Nucleated RBC % 0, Sodium 128 L, Potassium 4.8, C hloride 97 L, Carbon Dioxide 25.0, Anion Gap 6, BUN 15, Creatinine 1.25, Estim Creat Clear Calc 73.16, Est GFR (MDRD) Af Amer 76, Est GFR (MDRD) Non-Af 63, BUN/Creatinine Ratio 12.0, Glucose 83, Calcium 9.2, Phosphorus 4.3, Magnesium 2.0 D/C Instructions Discharge Diet: No restrictions Discharge Activity: Return to Normal Activity Call your doctor if you observe: Fever of 101 or Higher, Shortness of breath, Fainting spells and Chest pain Meaningful Use Info Meaningful Use Meaningful Use Diagnoses (Choose all that apply): None applicable Ischemic Stroke Statin Dosing Therapy Reference: STATIN DOSE THERAPY REFERENCE: * Patients > 75 years receive moderate or high dose statin therapy. * Patients 75 years or YOUNGER should receive HIGH intensity statin dose unless contraindicated. You will be required to document reason for non-treatment if statin daily dose does not meet guidelines. HIGH DOSE STATIN THERAPY DAILY Atorvastatin > than or = to 40 mg Rosuvastatin > than or = to 20 mg Amlodipine + Atorvastatin > than or = to 2.5/40 mg Ezetimibe + Simvastatin 10/80 mg Simvastatin 80mg Discharge Plan Admission Admit Date/Time: 02/25/24 15:52 Attending Provider: Sabino Tovar Primary Care Provider: Omega Hoffman Consulting Providers: Jeff Garrison; Harish Pool; Sherif Rain Discharge Orders/Prescriptions Prescriptions: New multivitamin Tablet 1 tab PO BREAKFAST Qty: 60 0RF thiamine HCl (vitamin B1) [Vitamin B-1] 100 mg Tablet 100 mg PO BREAKFAST Qty: 60 0RF folic acid 1 mg Tablet 1 mg PO BREAKFAST Qty: 60 0RF sodium chloride 1,000 mg Tablet,Soluble 1,000 mg PO TID Qty: 90 0RF Continued citalopram 20 mg tablet 20 mg PO DAILY PRN (Reason: anxiety) lisinopril 30 mg tablet 30 mg PO DAILY atenolol 50 mg tablet 50 mg PO DAILY artificial tears(hypromellose) 0.5 % drops 1 drp EACH EYE DAILY PRN (Reason: dry eyes) Referrals / Follow Up: Omega Hoffman MD [Primary Care Provider] - Within 1 Week (For repeat BMP within a week) Disposition Disposition (needs filled in before D/C Order can be placed): Home, Self Care Charges/Coding Visit Charges Inpatient E&M: 17786 Disch Hosp >30min
[2024-02-29 09:00] VITALS: BP 118/78; PULSE 78; RESP 16; TEMP 36.2; O2SAT 99
[2024-02-29] MEDS: Multivitamins,Therapeutic Tablet 1 TABLET PO (09:02)
[2024-02-29] MEDS: Thiamine Hydrochloride 100 MG Tablet PO (09:02)
[2024-02-29] MEDS: Folic Acid 1 MG Tablet PO (09:02)
[2024-02-29] MEDS: Potassium Chloride Oral Tablet 20 MEQ 40 MEQ PO (09:02)
[2024-02-29] MEDS: Atenolol 50 MG Tablet PO (09:10)
[2024-02-29] MEDS: 0.9% Saline Lock 10 ML Syringe IV (09:13)
[2024-02-29 09:35] VITALS: BP 115/76; PULSE 76; RESP 18; TEMP 36.1; O2SAT 100
--- NOTE | 2024-02-29 10:11 | CASEMGMT ---
Patient has order for discharge. RN CM in to discuss needs at discharge. Patient up independent in room. Patient denies needs or help at discharge. Patient had no further questions or concerns.
[2024-02-29 13:00] VITALS: BP 114/74; PULSE 75; RESP 16; TEMP 36.4; O2SAT 100
--- NOTE | 2024-02-29 13:45 | PN.RENAL_ITS ---
Subjective Subjective no new complaints. Objective Data Objective Data Vital Signs: Vital Signs Temp Pulse Resp BP Pulse Ox O2 Del Method 97.8 F 79 16 133/90 H 100 Room Air 02/29/24 03:35 02/29/24 03:35 02/29/24 03:35 02/29/24 03:35 02/29/24 03:35 02/29/24 03:37 Oxygen Delivery Method Room Air Weight: 92.8 kg Body Mass Index (BMI) 28.5 Intake & Output: Intake and Output for Last 24 Hours 02/27/24 02/28/24 02/29/24 23:59 23:59 23:59 Intake Total 1808 / 1808 572 / 572 Output Total 1150 / 1150 Balance 658 / 658 572 / 572 Lab / Micro Data 02/29/24 06:25 02/29/24 06:25 Labs: Laboratory Results - last 24 hr 02/29/24 05:45: Urine Osmolality 441, Ur Random Sodium < 5, Urine Potassium 68.0 02/29/24 06:25: WBC 8.7, RBC 3.96 L, Hgb 12.2 L, Hct 36.6 L, MCV 92.4, MCH 30.8, MCHC 33.3, RDW Std Deviation 50.3 H, RDW Coeff of Inocente 14.7 H, Plt Count 186, MPV 8.9, Immature Gran % (Auto) 0.300, Neut % (Auto) 57.6, Lymph % (Auto) 27.7, [place] % (Auto) 12.5 H, Eos % (Auto) 1.1, Baso % (Auto) 0.8, Absolute Neuts (auto) 5.0, Absolute Lymphs (auto) 2.41, Nucleated RBC % 0, Sodium 128 L, Potassium 4.8, C hloride 97 L, Carbon Dioxide 25.0, Anion Gap 6, BUN 15, Creatinine 1.25, Estim Creat Clear Calc 73.16, Est GFR (MDRD) Af Amer 76, Est GFR (MDRD) Non-Af 63, BUN/Creatinine Ratio 12.0, Glucose 83, Calcium 9.2, Phosphorus 4.3, Magnesium 2.0 Physical Exam Narrative General: Alert and oriented x3, NAD. HEENT: Normocephalic, atraumatic. Mucous membrane moist without erythema. PERRLA, EOMI. Hearing is intact. Neck: Supple, no JVD. Trachea is midline. No thyromegaly or lymphadenopathy. Cardiovascular: Normal S1, S2. No rubs, murmurs, or gallops. Respiratory: Lungs are clear to auscultation bilaterally. No wheezing, rhonchi, or rales. Abdomen: Normal bowel sounds, soft, nontender, no guarding or rebound, no organomegaly. Extremities: No clubbing, cyanosis, or edema. Musculoskeletal: Full passive range of motion, no joint swelling. Psychiatric: Normal mood and affect. Skin: Warm and dry, no rash. Neurologic: Cranial nerve II to XII are grossly intact. No focal neurologic deficits. Assessment & Plan Assessment/Plan (1) Hyponatremia: PLAN: Plan Impression/Plan: The patient is a 58-year-old male with past history of hypertension and generalized anxiety disorder. Patient presented to hospital with lightheadedness and was found to have serum sodium 113 mmol/L. Nephrology is following for hyponatremia. Hyponatremia. Patient presented with severe hyponatremia with serum sodium of 113 mmol/L on 02/25/2024. Urine studies on 02/17/2024 were consistent with both solute and volume depletion. Urine sodium was 11 mmol/L and urine osmolality was 121 mOsm/kg. The patient had been on citalopram prior to admission which can cause SIADH. The patient does drink alcohol regularly. started on salt tablets 02/28/24 sodium is better at 128 ok to dc from my end maintain salt tablets will arrange follow up after dc
--- NOTE | 2024-02-29 15:57 | CHAPLAIN ---
Type of Pastoral Visit _x__ Initial Visit ___ Follow-up Visit ___ On-call Visit ___ General Patient Visit ___ Spiritual Assessment ___ Family Conference ___ Bereavement ___ Rapid Response ___ Code Blue ___ Other (describe below) Pastoral Care Referral From _x__ Patient ___ Family ___ Nurse ___ Physician ___ Cataract Lens Generator ___ Dough Cutting Machine Operator ___ Other (describe below) Sacrament/Intervention _x__ Active listening ___ Anointing ___ Islam ___ Bereavement ___ Communion _x__ [place] exploration ___ _x__ Life review _x__ Prayer ___ Reconciliation ___ Sacrament of Sick _x__ Supportive presence ___ Wedding ___ Other (describe below) Pastoral Comments two messages had been left for this quality lead to make a visit with this patient before he was discharged; met with patient and he stated that he wanted to have prayer for the hospital, the staff (everyone in the building) as he was so thankful for the help and care; as questions were asked to the patient about his own situation and health, he opened up about his spiritual life and a new direction that he has taken over the last year and being reborn; pt stated his experience of coming to [facility] and then asked many questions about his understanding of the Bible and truth; pt acknowledged that he wanted instruction and that he hopes to start going to caodaism; this quality lead encouraged or affirmed the patient in his hopes and plans; pt and this quality lead both prayed; later the patient was seen going around and thanking the nurses for his care and for what they do; this quality lead stopped to talk with the patient and to acknowledge his kind words and expressions to the staff
== END 2024-02-29 13:02 | disposition home or self-care (01) | DRG 641 ==
LOC: ED 15:23 → ICU 16:06 → PCU 02-27 12:27
PROVIDERS: Internal Medicine; Internal Medicine Nephrology; Internal Medicine Pulmonary Disease; Admitting Provider Hospitalist; Emergency Provider Emergency Medicine; PCP Family Medicine; Visit Provider Internal Medicine
DX: E87.1 Hypo-osmolality and hyponatremia (principal); E86.9 Volume depletion, unspecified; F10.20 Alcohol dependence, uncomplicated; I10 Essential (primary) hypertension; E87.6 Hypokalemia; E87.70 Fluid overload, unspecified; T50.2X5A Adverse effect of carbonic-anhydrase inhibitors, benzothiadiazides and other diuretics, initial encounter; F41.1 Generalized anxiety disorder; R94.31 Abnormal electrocardiogram [ECG] [EKG]; R42 Dizziness and giddiness; Z86.16 Personal history of COVID-19
CPT/HCPCS: 36415; 70450; 71045; 80048; 82533; 83735; 83930; 83935; 84100; 84133; 84295; 84300; 84443; 84484; 84550; 85025; 85610; 85730; 93005; 94762; 99285; J7030; A4216

== ENCOUNTER → 2024-05-09 | Outpatient (CLI) | payer BC, MEDICAID, SELFPAY ==
[2024-05-09 12:27] LABS: Anion Gap 5 (5-15); BUN 6 mg/dL (7-18); BUN/Creat Ratio 6.1 RATIO (10-20); Calcium,Total 9.4 mg/dL (8.5-10.1); Chloride 100 mmol/L (98-107); Creatinine, Serum 0.98 mg/dL (0.70-1.30); EST Glomerular Filtration Rate 83 mL/min (>60); Est Glom Filt Rate - Afr Amer 100 mL/min (>60); Glucose 142 mg/dL (74-106); Potassium 4.3 mmol/L (3.5-5.1); Sodium Level 131 mmol/L (136-145)
== END | disposition home or self-care (01) ==
PROVIDERS: PCP Family Medicine; Referring Provider Nurse Practitioner Adult Health; Visit Provider Nurse Practitioner Adult Health
DX: E87.1 Hypo-osmolality and hyponatremia (principal)
CPT/HCPCS: 36415; 80048

== ENCOUNTER → 2024-06-07 | Outpatient (CLI) | payer BC, MEDICAID, SELFPAY ==
--- NOTE | 2024-06-07 14:59 | NEURO ---
NCS and/or EMG Patient Report Ordering Doctor: González Contreras DATE OF SERVICE: 06/07/24 Rylan presents with complaints of numbness and tingling in the hands, primarily the fourth and fifth digits. Electrodiagnostic findings: Median motor nerve demonstrates normal distal latency and amplitude bilaterally with borderline reduced conduction velocity. Prolonged median sensory latency at the wrist bilaterally. Right ulnar motor nerve demonstrates normal distal latency and amplitude with drop in conduction velocity across the elbow. Left ulnar motor nerve demonstrates normal distal latency and amplitude with drop in conduction velocity across the elbow. Prolonged ulnar F?waves bilaterally. Needle EMG testing was performed upper limbs. All muscles tested showed no evidence of denervation with normal motor unit action potentials. 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 This is consistent with a mild to moderate bilateral cubital tunnel syndrome. 2 Electrodiagnostic evidence significant for median mononeuropathy. This consistent with a mild bilateral carpal tunnel syndrome. 3. No electrodiagnostic evidence is noted for cervical radiculopathy Multi Select Codes Neurology Neurology Interp Codes: 31807-32 Musc test done w/n test comp (interp) (2) and 90772-82 Nrv cndj test 13/> studies (interp)
== END | disposition home or self-care (01) ==
PROVIDERS: PCP Family Medicine; Referring Provider Orthopaedic Surgery; Visit Provider Orthopaedic Surgery
DX: G56.22 Lesion of ulnar nerve, left upper limb (principal); G56.21 Lesion of ulnar nerve, right upper limb
CPT/HCPCS: 95886; 95913

== ENCOUNTER → 2024-08-02 | Outpatient (CLI) | payer MEDICAID, SELFPAY ==
--- NOTE | 2024-08-02 13:34 | NEURO ---
NCS and/or EMG Patient Report Ordering Doctor: González Contreras DATE OF SERVICE: 08/02/24 Rylan presents with complaints of numbness and tingling in each foot. He has a history of lower back pain. Electrodiagnostic findings: Right peroneal motor nerve demonstrates normal distal latency with reduced amplitude and reduced conduction velocity. Left peroneal motor nerve demonstrates normal distal latency and amplitude with borderline reduced conduction velocity. Tibial motor nerve demonstrates normal distal latency bilaterally with reduced amplitude bilaterally and reduced conduction velocity. Prolonged right peroneal and left peroneal F?waves. Right tibial and left tibial F?waves were not obtainable. Prolonged H?reflex bilaterally. Prolonged sural latency is noted bilaterally. Prolonged right superficial peroneal latency. Needle EMG testing was performed in the lower limbs. Motor units of increased amplitude and duration noted bilaterally in the gastrocnemius. Electrodiagnostic impression: This is an abnormal study in the lower limbs. 1. Electrodiagnostic findings suggestive of peripheral polyneuropathy, with motor and sensory nerve involvement. There is evidence of axon loss and demyelination. 2. No electrodiagnostic evidence is noted for lumbosacral radiculopathy. Multi Select Codes Neurology Neurology Interp Codes: 42907-02 Musc test done w/n test comp (interp) (2) and 17336-75 Nrv cndj test 9-10 studies (interp)
== END | disposition home or self-care (01) ==
LOC: PSN 07:42
PROVIDERS: PCP Family Medicine; Referring Provider Orthopaedic Surgery; Visit Provider Orthopaedic Surgery
DX: R20.0 Anesthesia of skin (principal); R20.2 Paresthesia of skin
CPT/HCPCS: 95886; 95911